=== PATIENT | male | born 1945 | race Hispanic/Latino ===

== ENCOUNTER 2017-01-23 13:21 | Inpatient (IN) | payer MEDICARE, OTHER ==
[2017-01-23 13:25] VITALS: BMI 38.3
[2017-01-23] MEDS ORDERED: Ceftaroline 600 MG in Sodium Chloride 0.9% 100 ML IVPB STA (14:04)
[2017-01-23 14:08] LABS: ADD MANUAL DIFF? NO
[2017-01-23 14:12] LABS: VENOUS BLOOD GAS BASE EXCESS -2.9 mmol/L (0.0-2.0); VENOUS BLOOD PH 7.31 (7.32-7.43)
--- NOTE | 2017-01-23 14:23 | ED PDOC ---
Arrival/HPI - General Historian: Patient - History of Present Illness Time/Duration: Prior to Arrival, 4-6 hours Symptom Onset: Gradual Quality: Pressure, Stabbing Severity Level: 7 <Fransisco Brady - Last Filed: 01/23/17 15:53> <Jerrod Contreras - Last Filed: 01/23/17 17:13> - General Chief Complaint: Abnormal Skin Integrity Time Seen by Provider: 01/23/17 13:23 - History of Present Illness Narrative History of Present Illness (Text): 01/23/17 14:05 This is a 71 year old male with a PMH notable for HTN and DM presenting to the ED by referral from Dr. Ramirez in the wound care center for right knee infection. The patient has a remote history of posterior longitudinal ligament avulsion fracture of his right tibia. The patient has been previously seen by Dr. Aguillon (orthopedics). The patient is presenting with a swollen, painful right knee. The pain started this morning. The pain has not restricted his ROM at all. He has minimal pain with weight bearing. The patient has a wound that may possibly violate the knee capsule. He previously had a wound-vac on, but it was removed on Monday01/18/17. The patient denies fever, chills, chest pain, shortness of breath, abdominal pain, changes in bowel/bladder, and extremity paresthesias. (Fransisco Brady) Past Medical History - Provider Review Nursing Documentation Reviewed: Yes - Travel History Have you recently traveled outside [place] w/in the past 3 mons?: No - Infectious Disease Hx of Infectious Diseases: None - Tetanus Immunization Tetanus Immunization: Unknown - Cardiac Hx Hypertension: Yes - Pulmonary Hx Chronic Obstructive Pulmonary Disease (COPD): Yes - Neurological Hx Neurological Disorder: No - HEENT Hx HEENT Disorder: No - Renal Hx Renal Disorder: No - Endocrine/Metabolic Hx Diabetes Mellitus Type 2: Yes - Hematological/Oncological Hx Blood Disorders: No - Integumentary Other/Comment: right knee multiple blisters, bruises, and swelling, right foot brown skin discolorations and redness with z+1 edema, hard thick toenails both feet, redness swelling lle, multiple skin discolortions both arms, small scratch right forehead - Musculoskeletal/Rheumatological Hx Musculoskeletal Disorders: Yes Hx Spinal Stenosis: Yes Other/Comment: previous L knee injury, uses brace - Gastrointestinal Hx Gastrointestinal Disorders: No - Genitourinary/Gynecological Hx Genitourinary Disorders: No - Psychiatric Hx Psychophysiologic Disorder: No Hx Substance Use: No - Anesthesia Hx Anesthesia: No Hx Anesthesia Reactions: No Hx Malignant Hyperthermia: No <Fransisco Brady - Last Filed: 01/23/17 15:53> <Jerrod Contreras - Last Filed: 01/23/17 17:13> - Patient History Narrative Patient History: This is a 71 year old male with a PMH notable for HTN and DM (Fransisco Brady) Family/Social History - Physician Review Nursing Documentation Reviewed: Yes Family/Social History: No Known Family HX Smoking Status: Heavy Smoker > 10 Cigarettes Daily (quit Monday (01/20/17 at start of Hyperbaric therapy)) Hx Alcohol Use: No Hx Substance Use: No <Fransisco Brady - Last Filed: 01/23/17 15:53> Allergies/Home Meds <Fransisco Brady - Last Filed: 01/23/17 15:53> <Jerrod Contreras - Last Filed: 01/23/17 17:13> Allergies/Adverse Reactions: Allergies ropinirole HCl [From Requip] Allergy (Severe, Verified 01/23/17 13:25) ANGIOEDEMA swollen tongue Home Medications: Home Meds Medication Instructions Recorded Confirmed Enalapril Maleate [Vasotec] 20 mg PO DAILY 08/20/16 01/23/17 Gemfibrozil 600 mg PO BID 08/20/16 01/23/17 GlipiZIDE SR [Glucotrol XL] 10 mg PO DAILY 08/20/16 01/23/17 Metoprolol Tartrate [Lopressor] 50 mg PO DAILY 08/20/16 01/23/17 Spironolactone [Aldactone] 25 mg PO DAILY 08/20/16 01/23/17 amLODIPine [Norvasc] 10 mg PO DAILY 08/20/16 01/23/17 hydrALAZINE [Apresoline] 25 mg PO BID 08/20/16 01/23/17 Terazosin [Hytrin] 10 mg PO DAILY 01/23/17 01/23/17 Review of Systems - Physician Review All systems were reviewed & negative as marked: Yes - Review of Systems Constitutional: absent: Fatigue, Fevers Eyes: absent: Vision Changes, Eye Pain ENT: absent: Hearing Changes, Tinnitus Respiratory: absent: SOB, Cough Cardiovascular: absent: Chest Pain, Palpitations Gastrointestinal: absent: Abdominal Pain, Nausea, Vomiting Genitourinary Male: absent: Dysuria, Frequency Musculoskeletal: Arthralgias, Joint Swelling, Myalgias. absent: Back Pain Skin: absent: Rash, Pruritis Neurological: absent: Headache, Dizziness Endocrine: absent: Diaphoresis Hemo/Lymphatic: absent: Adenopathy Psychiatric: absent: Anxiety <Fransisco Brady - Last Filed: 01/23/17 15:53> Physical Exam Vital Signs Reviewed: Yes Temperature: Afebrile Blood Pressure: Normal Pulse: Regular Respiratory Rate: Normal Appearance: Positive for: Well-Appearing, Non-Toxic, Comfortable Pain Distress: Moderate Mental Status: Positive for: Alert and Oriented X 3 - Systems Exam Head: Present: Atraumatic, Normocephalic Pupils: Present: PERRL Extroacular Muscles: Present: EOMI Conjunctiva: Present: Normal Mouth: Present: Moist Mucous Membranes. No: Drooling Neck: Present: Normal Range of Motion. No: Lymphadenopathy Respiratory/Chest: Present: Clear to Auscultation, Good Air Exchange. No: Respiratory Distress, Accessory Muscle Use Cardiovascular: Present: Regular Rate and Rhythm, Normal S1, S2. No: Murmurs Abdomen: Present: Normal Bowel Sounds. No: Tenderness, Distention, Peritoneal Signs Back: Present: Normal Inspection. No: CVA Tenderness, Pain with Leg Raise Upper Extremity: Present: Normal Inspection, Normal ROM, NORMAL PULSES, Neurovascularly Intact. No: Cyanosis, Edema Lower Extremity: Present: Edema (1+ B/L), NORMAL PULSES, Normal ROM, Tenderness (right medial knee), Swelling (right knee), Erythema (right knee), Temperature Abnormalties (right knee warmth ), Other (Right Knee Wound 1.5cm possible penetration of the joint capsult / 2+ joint effusion ). No: Normal Inspection, CALF TENDERNESS Neurological: Present: GCS=15, CN II-XII Intact Skin: Present: Warm, Dry. No: Rashes, Normal Color (erythema right knee) Psychiatric: Present: Alert, Oriented x 3. No: Normal Insight, Normal Concentration <Fransisco Brady - Last Filed: 01/23/17 15:53> Vital Signs Temp Pulse Resp BP Pulse Ox 01/23/17 16:39 66 16 125/95 H 100 01/23/17 13:27 97.5 F L 67 17 130/65 95 Medical Decision Making - Lab Interpretations I have reviewed the lab results: Yes Interpretation: Abnormal lab values <Romi Bradys - Last Filed: 01/23/17 15:53> <Jerrod Contreras - Last Filed: 01/23/17 17:13> ED Course and Treatment: 01/23/17 14:32 Impression: This is a 71 year old male with a PMH notable for HTN and DM presenting to the ED by referral from Dr. Ramirez in the wound care center for right knee infection. The patient appears clinically stable. The patients knee is grossly erythematous and edematous. Differential: Knee Joint Infection Soft Tissue Infection Abscess Non-healing wound Plan: CBC, CMP, PT, PTT, Mag, Phos, ESR, CRP Blood Cultures UA, Urine Culture MRI Right Knee w/ and w/o contrast Teflaro 600mg IV x 1 Prior Visits: 08/20/16- Right tibial plateau fracture/fall Progress Notes: Patient seen and examined at the bedside. The patient is in moderate distress 2 /2 to pain. The patient's knee is grossly swollen and edematous. The patient has a 1.5cm wound that appears deep and may possibly violate the knee joint that is covered with a bandage. The patient has intact ROM of the right knee. The patient is able to ambulate. The patient is pending MRI. 01/23/17 16:03 Dr. Aguillon was contacted regarding consultation for this patient. He advised no invasive procedures to be done in the ED, and to continue with MRI and IV antibiotics. Dr. Ramirez has taken wound cultures prior to the patient's admission to the ED. Dr. Trivedi's service was called regarding the patient. She has accepted the patient for admission. (Fransisco Brady) A 71 year old male sent in by Dr. Ramirez for a right knee infection. In agreement with resident note, which includes further HPI details. Patient was seen and evaluated with resident, came up with plan and treatment together. Will order MRI, labs and medication. Patient to be admitted under Dr. Mei. I discussed plan with her. (Jerrod Contreras) - Lab Interpretations Narrative Lab Interpretation (Text): 01/23/17 14:41 01/23/17 14:00 WBC 11.4 H RBC 3.81 Hgb 11.8 L Hct 35.7 L MCV 93.7 MCH 31.0 MCHC 33.1 RDW 14.3 Plt Count 356 MPV 10.8 Gran % 79.7 H Lymph % (Auto) 12.4 L [place] % (Auto) 7.2 H Eos % (Auto) 0.4 L Baso % (Auto) 0.3 Gran # 9.10 H Lymph # 1.4 [place]win # 0.8 H Eos # 0.1 Baso # 0.03 ESR Pending pO2 46 VBG pH 7.31 L VBG pCO2 47.0 VBG HCO3 23.7 VBG Total CO2 25.1 VBG O2 Sat (Calc) 83.7 H VBG Base Excess -2.9 L VBG Potassium 3.5 L Glucose 168 H Lactate 1.0 FiO2 21.0 Sodium 135.0 Potassium 3.9 Chloride 104.0 Carbon Dioxide 22 Anion Gap 18 BUN 19 Creatinine 1.3 Est GFR ( Amer) > 60 Est GFR (Non-Af Amer) 55 Random Glucose 164 H Calcium 9.0 Phosphorus 3.0 Magnesium 1.9 Total Bilirubin 0.6 AST 25 ALT 8 Alkaline Phosphatase 73 NT-Pro-B Natriuret Pep 860 H Total Protein 7.3 Albumin 3.9 Globulin 3.4 Albumin/Globulin Ratio 1.1 Venous Blood Potassium 3.5 L (Fransisco Brady) Lab Results: 01/23/17 14:00 01/23/17 14:00 Lab Results 01/23/17 14:00: WBC 11.4 H, RBC 3.81, Hgb 11.8 L, Hct 35.7 L, MCV 93.7, MCH 31.0 , MCHC 33.1, RDW 14.3, Plt Count 356, MPV 10.8, Gran % 79.7 H, Lymph % (Auto) 12.4 L, [place] % (Auto) 7.2 H, Eos % (Auto) 0.4 L, Baso % (Auto) 0.3, Gran # 9.10 H, Lymph # 1.4, [place] # 0.8 H, Eos # 0.1, Baso # 0.03, ESR 22 H, PT 11.5, INR 1.06, APTT 27.2, pO2 46, VBG pH 7.31 L, VBG pCO2 47.0, VBG HCO3 23.7, VBG Total CO2 25.1, VBG O2 Sat (Calc) 83.7 H, VBG Base Excess -2.9 L, VBG Potassium 3.5 L , Glucose 168 H, Lactate 1.0, FiO2 21.0, Sodium 135.0, Potassium 3.9, Chloride 104.0, Carbon Dioxide 22, Anion Gap 18, BUN 19, Creatinine 1.3, Est GFR ( Amer) > 60, Est GFR (Non-Af Amer) 55, Random Glucose 164 H, Calcium 9.0 , Phosphorus 3.0, Magnesium 1.9, Total Bilirubin 0.6, AST 25, ALT 8, Alkaline Phosphatase 73, NT-Pro-B Natriuret Pep 860 H, Total Protein 7.3, Albumin 3.9, Globulin 3.4, Albumin/Globulin Ratio 1.1, Venous Blood Potassium 3.5 L - RAD Interpretation Radiology Orders: 01/23/17 14:01 KNEE W/ & W/O CONTRAST RGHT [MRI] Urgent - Medication Orders Current Medication Orders: Discontinued Medications Ceftaroline Fosamil 600 mg/ (Sodium Chloride) 100 mls @ 100 mls/hr IVPB STAT STA PRN Reason: Protocol Stop: 01/23/17 15:03 Last Admin: 01/23/17 14:49 Dose: 100 MLS/HR eMAR Start Stop Document 01/23/17 14:49 EQ (Rec: 01/23/17 14:50 EQ [facility] [id number]) Intravenous Solution Start Date 01/23/17 Start Time 14:50 - PA / AUTO TECH / Resident Statement / has reviewed & agrees with the documentation as recorded. / has examined the patient and agrees with the treatment plan. <Jerrod Contreras - Last Filed: 01/23/17 17:13> Disposition/Present on Arrival - Present on Arrival Any Indicators Present on Arrival: No History of DVT/PE: No History of Uncontrolled Diabetes: No Urinary Catheter: No History of Decub. Ulcer: No History Surgical Site Infection Following: None - Disposition Have Diagnosis and Disposition been Completed?: Yes Disposition Time: 14:41 Patient Plan: Admission <Fransisco Brady - Last Filed: 01/23/17 15:53> - Present on Arrival Any Indicators Present on Arrival: No - Disposition Have Diagnosis and Disposition been Completed?: Yes Disposition Time: 17:12 Patient Plan: Admission, Discharge <Jerrod Contreras - Last Filed: 01/23/17 17:13> - Disposition Diagnosis: Infection of knee, Right knee pain Disposition: HOSPITALIZED Patient Problems: Current Active Problems Problem Status Diagnosed Infection of knee Acute Right knee pain Acute Condition: FAIR
[2017-01-23 14:24] LABS: BASO # 0.03 K/mm3 (0.0-2.0); BASO % 0.3 % (0.0-3.0); EOS # 0.1 (0.0-0.7); EOS % 0.4 % (1.5-5.0); GRAN % 79.7 % (50.0-68.0); HEMATOCRIT 35.7 % (42.0-52.0); LYMPH # 1.4 (1.2-3.4); LYMPH % 12.4 % (22.0-35.0); MEAN CELL VOLUME 93.7 fL (80.0-105.0); MEAN CORPUSCULAR HGB CONC 33.1 g/dl (31.0-37.0); MEAN PLATELET VOLUME 10.8 fl (7.0-11.0); MONO # 0.8 (0.1-0.6); MONO % 7.2 % (1.0-6.0); PLATELET COUNT 356 10^3/uL (120.0-450.0); RED CELL DISTRIBUTION WIDTH 14.3 % (11.5-14.5); WHITE BLOOD COUNT 11.4 10^3/ul (4.5-11.0)
[2017-01-23 14:26] LABS: ALB/GLOB RATIO 1.1 (1.1-1.8); ALKALINE PHOSPHATASE 73 U/L (38-133); ALT/SGPT 8 U/L (7-56); AST/SGOT 25 U/L (15-59); BILIRUBIN,TOTAL 0.6 mg/dL (0.2-1.3); BLOOD UREA NITROGEN 19 mg/dL (7-21); CARBON DIOXIDE 22 mmol/L (21-33); CHLORIDE 101 mmol/L (98-107); GFR AFRICAN-AMERICAN > 60; GLUCOSE,RANDOM 164 mg/dL (70-110); MAGNESIUM 1.9 mg/dL (1.7-2.2); POTASSIUM 3.9 mmol/L (3.6-5.0); SODIUM 137 mmol/L (132-148); TOTAL PROTEIN 7.3 g/dL (5.8-8.3)
[2017-01-23 14:39] LABS: INR 1.06 (0.93-1.08); PARTIAL THROMBOPLASTIN TIME 27.2 Seconds (23.7-30.8)
[2017-01-23 15:48] LABS: ERYTHROCYTE SEDIMENTATION RATE 22 mm/hr (0.00-15.0)
[2017-01-23 17:33] LABS: URINE BILIRUBIN NEGATIVE (NEGATIVE); URINE BLOOD NEGATIVE (NEGATIVE); URINE GLUCOSE (UA) NEGATIVE (NEGATIVE); URINE KETONE NEGATIVE (NEGATIVE); URINE LEUKOCYTE ESTERASE NEGATIVE Leu/uL (NEGATIVE); URINE PROTEIN TRACE mg/dL (<30 mg/dL); URINE UROBILINOGEN 0.2 E.U./dL (<1 E.U./dL)
[2017-01-23 17:34] LABS: URINE APPEARANCE CLEAR (CLEAR); URINE COLOR YELLOW (YELLOW)
[2017-01-23 17:37] LABS: URINE EPITHELIAL CELLS 0 - 2 /hpf (0-5); URINE RBC 0 - 2 /hpf (0-2); URINE WBC 0 - 2 /hpf (0-6)
[2017-01-23 17:38] LABS: URINE BACTERIA MANY (NEG)
[2017-01-23 17:40] LABS: URINE AMORPHOUS SEDIMENT FEW
[2017-01-23] MEDS ORDERED: Gadodiamide 287 MG/ML VIAL (20ML) IV ONE (18:57)
[2017-01-23] MEDS ORDERED: Albuterol-Ipratrop 3 mg / 0.5 (3 ml) UD IH PRN (19:30)
[2017-01-23] MEDS: Linezolid 600 mg in D5W 300 ml 300 ML IVPB SCH (22:57)
[2017-01-23] MEDS: Cefepime IV 2 gm in NS 100 ML IVPB SCH (22:57)
[2017-01-24] MEDS: Cefepime IV 2 gm in NS 100 ML IVPB SCH ×2 (09:25→21:53)
[2017-01-24] MEDS: GlipiZIDE 10 mg SR Tab PO SCH ×2 (09:26→12:39)
[2017-01-24] MEDS: Oxycodone/Acetaminophen 5/325 mg Tab PO PRN (13:39)
--- NOTE | 2017-01-24 14:18 | HP ---
CHIEF COMPLAINT: Pain in the right knee. HISTORY OF PRESENT ILLNESS: The patient is a 71-year-old, my private patient, with past medical history of hypertension, diabetes mellitus, came to the Emergency Room sent by Dr. Ramirez. The patient was getting wound care in the wound care center for wound on the right knee. The patient has remote history of procedure. wound of right tibia. The patient has been previously seen by Dr. Aguillon, orthopedics. The patient was getting wound treatment from Dr. Ramirez. Dr. Ramirez sent the patient to the Emergency Room because the knee was swollen and painful. He has minimal weightbearing. The patient has a wound that looks like communecating with theknee . The wound is deep and it looks like it has white debret infected. He previously had wound VAC on it but it was removed ,01/18/17. The patient denies any fever, chills, no chest pain, shortness of breath, abdominal pain. No diarrhea. No change in bowel habits. PAST MEDICAL HISTORY: Hypertension, COPD, diabetes mellitus. Right knee is swelling, edema. FAMILY HISTORY: Father and mother noncontributory. HABITS: Heavy smoking, quit on 01/20/17 as per patient as part of hyperbaric therapy. No alcohol. No substance abuse. ALLERGIES: THE PATIENT IS ALLERGIC WITH GIVING ANGIOEDEMA. HOME MEDICATIONS: Vasotec, gemfibrozil, Glucotrol, Lopressor, Aldactone, REVIEW OF SYSTEMS: The patient is examined at the bedside, complaining about pain in the right knee. Right knee swelling. No fever, no chills, no nausea, vomiting, or diarrhea. No hematuria or hematochezia. No headache, no dizziness. PHYSICAL EXAMINATION: VITAL SIGNS: Temperature 98.2, pulse 68, blood pressure 132/72, respiratory rate 19. HEENT: Head normocephalic, atraumatic. Eyes: PERRLA. Extraocular muscles intact. Conjunctivae pink. Eyelids unremarkable. Nose patent. NECK: Supple. No carotid bruit, JVD or thyromegaly. CHEST: Bilaterally symmetrical. HEART: S1, S2 positive. LUNGS: Clear to auscultation. ABDOMEN: Soft. Bowel sounds present. No organomegaly. EXTREMITIES: Left extremity, no edema and no cyanosis. Right extremity: Knee has dressing but is red, warm and wound is deep. It looks like a cornejo tone under the kneecap and it has a whitish discharge. NEUROLOGIC: The patient is awake, alert, moving all 4 extremities. No focal deficit. LABORATORY DATA: White blood cells 11.4, hemoglobin 11.8, hematocrit 35.7, and platelets 356. Sodium 137, potassium 3.9, BUN 19, creatinine 1.3, glucose 163. ASSESSMENT AND PLAN: The patient is a 71-year-old male with leukocytosis, anemia, hyperglycemia, proteinuria. Plan for MRI of the knee, results are pending. History of hypertension, diabetes mellitus, obesity, noncompliance with heavy smoking, history of falls, chronic obstructive pulmonary disease, obstructive sleep apnea syndrome, right knee cellulitis. Rule out osteomyelitis. We admitted the patient, gave antibiotics. consult with Dr. Ramirez. Infectious disease consult called also. Will call orthopedics. Gastrointestinal and deep venous thrombosis prophylaxis. Repeat labs. We will follow up. Sally Mei MD cc: [id number] TT: 01/24/2017 08:56:01 ron CANELA
--- NOTE | 2017-01-24 15:08 | MRI ---
PROCEDURE: MRI Right Knee with and without contrast HISTORY: Pain. COMPARISON: None available. TECHNIQUE: Multiecho multiplanar sequences were performed through the right knee. 15 cc of Omniscan FINDINGS: ANTERIOR CRUCIATE LIGAMENT:: Intact. POSTERIOR CRUCIATE LIGAMENT:: Intact. MEDIAL MENISCUS:: Intact. LATERAL MENISCUS:: Intact. MEDIAL COLLATERAL LIGAMENT:: Intact. LATERAL COLLATERAL LIGAMENT COMPLEX:: Intact. QUADRICEPS TENDON:: Intact. PATELLAR TENDON:: Intact. CARTILAGE:: There is thinning and irregularity of the patellar cartilage JOINT FLUID:: Intact. OSSEOUS STRUCTURES:: Intact. OTHER FINDINGS: There is a large loculated fluid collection anterior and medial to the patella. This measures 7 cm height by 2.6 cm AP x 4.3 cm wide. There is surrounding enhancement edema and inflammation. The findings are consistent with an abscess versus an infected bursa. IMPRESSION: There is a large loculated fluid collection anterior and medial to the patella. This measures 7 cm height by 2.6 cm AP x 4.3 cm wide. There is surrounding enhancement edema and inflammation. The findings are consistent with an abscess versus an infected bursa.
--- NOTE | 2017-01-24 16:03 | CP.PCM.CON ---
History of Present Illness - History of Present Illness History of Present Illness: 71 year old male with PMH of HTN, DM, COPD, obstructive sleep apnea, obesity with BMI 38, history of posterior cruciate ligament avulsion was admitted after being seen by Dr. Ramirez at the [facility] care center. He has a swollen right knee which started 1-2 days ago, with minimal change in the knee's range of motion. He denies trauma to the knee, denies insect bites. The patient has a pet cat but he denies scratches from the cat. He also denies any travel outside of [place] in the past 3 months, no travels through wooded areas or bodies of water. The patient denies fever or chills, no nausea or vomiting, no chest pain , no SOB, no cough or colds, no diarrhea, no dysuria or hematuria, no abdominal pain. Infectious Diseases consult is requested to further evaluate and manage. Review of Systems - Review of Systems All systems: reviewed and no additional remarkable complaints except (as per HPI ) Past Patient History - Infectious Disease Hx of Infectious Diseases: None - Tetanus Immunizations Tetanus Immunization: Unknown - Past Medical History & Family History Past Medical History?: Yes Past Family History: Reviewed and not pertinent - Past Social History Smoking Status: Former Smoker Alcohol: Occasional Drugs: Denies Home Situation {Lives}: With Family - CARDIAC Hx Cardiac Disorders: Yes Hx Hypertension: Yes - PULMONARY Hx Respiratory Disorders: Yes Hx Chronic Obstructive Pulmonary Disease (COPD): Yes Hx Sleep Apnea: Yes - NEUROLOGICAL Hx Neurological Disorder: No - HEENT Hx HEENT Problems: No - RENAL Hx Chronic Kidney Disease: No - ENDOCRINE/METABOLIC Hx Endocrine Disorders: Yes Hx Diabetes Mellitus Type 2: Yes - HEMATOLOGICAL/ONCOLOGICAL Hx Blood Disorders: No - INTEGUMENTARY Hx Dermatological Problems: Yes - MUSCULOSKELETAL/RHEUMATOLOGICAL Hx Musculoskeletal Disorders: Yes Hx Falls: Yes (TRIPPED OVER CARPET IN [employer] 08/20/17) - GASTROINTESTINAL Hx Gastrointestinal Disorders: No - GENITOURINARY/GYNECOLOGICAL Hx Genitourinary Disorders: No - PSYCHIATRIC Hx Psychophysiologic Disorder: No - SURGICAL HISTORY Hx Surgeries: Yes (cyst resection from spine 1965) - ANESTHESIA Hx Anesthesia: No Hx Anesthesia Reactions: No Hx Malignant Hyperthermia: No Meds Allergies/Adverse Reactions: Allergies Allergy/AdvReac Type Severity Reaction Status Date / Time ropinirole HCl [From Requip] Allergy Severe ANGIOEDEMA Verified 01/23/17 13:25 - Medications Medications: Current Medications Albuterol/Ipratropium (Duoneb 3 Mg/0.5 Mg (3 Ml) Ud) 3 ml IH [id number] PRN PRN Reason: Shortness of Breath Amlodipine Besylate (Norvasc) 10 mg PO 1800 MEHREEN Furosemide (Lasix) 40 mg PO DAILY MEHREEN Gemfibrozil (Lopid) 600 mg PO BID MEHREEN Glipizide (Glucotrol Xl) 10 mg PO DAILY MEHREEN Hydralazine HCl (Apresoline) 25 mg PO BID MEHREEN Lisinopril (Zestril) 20 mg PO DAILY MEHREEN Metoprolol Tartrate (Lopressor) 50 mg PO BRK MEHREEN Spironolactone (Aldactone) 25 mg PO DAILY MEHREEN Physical Exam - Constitutional Appears: Non-toxic, No Acute Distress - Head Exam Head Exam: NORMAL INSPECTION - ENT Exam ENT Exam: Mucous Membranes Moist - Neck Exam Neck exam: Negative for: Lymphadenopathy, Meningismus - Respiratory Exam Respiratory Exam: Decreased Breath Sounds - Cardiovascular Exam Cardiovascular Exam: +S1, +S2 - GI/Abdominal Exam GI & Abdominal Exam: Soft. absent: Tenderness - Extremities Exam Additional comments: swelling, redness and erythema over the medial portion of the knee without note of fluid wave in the knee joint Results - Vital Signs Recent Vital Signs: Last Vital Signs Temp 98.2 F 01/23/17 17:41 Pulse 68 01/23/17 17:41 Resp 19 01/23/17 17:41 BP 136/72 01/23/17 17:41 Pulse Ox 100 01/23/17 16:39 - Labs Result Diagrams: 01/23/17 14:00 01/23/17 14:00 Labs: Laboratory Results - last 24 hr 01/23/17 01/23/17 01/23/17 17:02 17:20 21:26 POC Glucose (mg/dL) 163 H 110 Urine Color Yellow Urine Appearance Clear Urine pH 6.0 Ur Specific [place] 1.015 Urine Protein Trace H Urine Glucose (UA) Negative Urine Ketones Negative Urine Blood Negative Urine Nitrate Negative Urine Bilirubin Negative Urine Urobilinogen 0.2 Ur Leukocyte Esterase Negative Urine RBC 0 - 2 Urine WBC 0 - 2 Ur Epithelial Cells 0 - 2 Amorphous Sediment Few Urine Bacteria Many Hyaline Casts 0 - 2 Fine Granular Casts Trauma Registrar Assessment & Plan - Assessment and Plan (Free Text) Plan: Assessment Sepsis secondary to right knee prepatellar abscess or infected bursa HTN DM COPD obstructive sleep apnea obesity with BMI 38 history of posterior cruciate ligament avulsion Plan Started patient on Zyvox and Cefepime pending blood cx; will await Orthopedic evaluation and plan for drainage of the fluid collection Will follow clinically
--- NOTE | 2017-01-24 19:29 | CON ---
DATE: 01/24/2017 REASON FOR CONSULTATION: Right knee pain, cellulitis. This is a 71-year-old gentleman who was being treated as an outpatient for a right knee wound on the lateral aspect of his proximal tibia. The patient was getting wound care, as well as antibiotics, an d was seen and developed increased pain and swelling about the medial aspect of the right knee. The patient was subsequently admitted, and now presents for further orthopedic evaluation and treatment. The patient has been started on IV antibiotics on admission. On exam, this is a gentleman in no apparent distress. He is awake, alert, and oriented x 3. He is c urrently afebrile. Evaluation of the right knee shows he has erythema and swelling along the anteromedial aspect of the right knee. He is tender to palpation in this area. He also has a medial wound approximately 2.5 x 3 cm that appears to have some fibrinous material in the base of the ulcer. No gross purulence is a ppreciated. He does not have any significant tenderness around this area. He is tolerating some act francisca range of motion of the knee from about -5 to 90 degrees of flexion. He is grossly stable with va seema valgus stress. His thigh and calf are soft and nontender. NEUROLOGICALLY: He is intact. I have reviewed the MRI images. MRI appears to be consistent with a fluid collection along the anter omedial aspect of the knee joint. There does not appear to be a sinus tract going into the knee join t. There is a small knee effusion. No obvious bone marrow changes are appreciated in the proximal t ibia or distal femur to suggest an osteomyelitis. IMPRESSION: Right knee abscess and cellulitis. PLAN: At this point, recommendations would be for irrigation and debridement of the area around the anteromedial aspect of his knee. The risks and benefits were discussed. We are going to plan on asif eduling him for surgery tomorrow. Dhaval Aguillon MD cc: [id number] TT: 01/24/2017 19:28:49 Confirmation # [id number] Dictation # [id number] shyla
--- NOTE | 2017-01-24 20:48 | PN ---
DATE: 01/24/2017 SUBJECTIVE: The patient seen and examined on the bedside, looks comfortable. No nausea, vomiting, or diarrhea. No hematuria or hematochezia. Still complaining about pain in the leg. No fever, no chills, but right leg is warm and red. The patient went for wound chamber treatment. No hematuria or hematochezia. PHYSICAL EXAMINATION: VITAL SIGNS: Temperature 98.5, pulse 66, blood pressure 133/59, respiratory rate 18. HEENT: Head normocephalic, atraumatic. Eyes: PERRLA. Extraocular muscles intact. Conjunctivae pink. Eyelids unremarkable. Nose patent. NECK: Supple. No carotid bruit, JVD or thyromegaly. CHEST: Bilaterally symmetrical. HEART: S1, S2 positive. LUNGS: Clear to auscultation. ABDOMEN: Soft. Bowel sounds positive. No organomegaly. EXTREMITIES: Upper extremities, no edema, no cyanosis. Lower extremities, right knee has dressing, but SURROUNDING area is red and warm and patient has pain in the knee. NEUROLOGIC: The patient is awake, alert, moving all 4 extremities. No focal deficits. Oriented x 3. Cranial nerves II-XII were grossly intact. MEDICATIONS: Aldactone, hydralazine, dextrose, DuoNeb, Glucotrol, Lasix, Lopressor, Maxipime, Norvasc, Percocet, Zestril, Zyvox. LABORATORY DATA: White blood cells 11.4, hemoglobin 11.8, hematocrit 35.7, platelets 235. Glucose 156, 122, 143, 119. ASSESSMENT AND PLAN: The patient is a 71-year-old male with sepsis secondary to right knee prepatellar abscess or infected bursa, history of trauma, hypertension, diabetes mellitus, chronic obstructive pulmonary disease, obstructive sleep apnea syndrome, obesity, history of posterior cruciate ligament avulsion. The patient is started on Zyvox and cefepime pending blood culture. Waiting for orthopedic evaluation and plan of draining of the fluid collected. Appreciated Dr. Gm Uribe's consult, infectious disease. Orthopedic recommended wound care, irrigation and debridement of the area surrounding the anteromedial aspect of the knee. Risks and benefits discussed. The patient will go for surgery tomorrow. The patient has history of obstructive sleep apnea syndrome. Was getting wound care and chamber treatment by Dr. Ramirez in the wound care center. Used to have a wound VAC. The patient has minimal change in the knee range of motion. Denies recent trauma, history of trauma. Gastrointestinal and deep vein thrombosis prophylaxis. Continue Aldactone and continue glipizide for diabetes, Zyvox for infection, Zestril, amlodipine, Lopressor for hypertriglyceridemia. Appreciated surgical and infectious disease input. We will follow up. Sally Mei MD cc: [id number] TT: 01/24/2017 20:48:14 Confirmation # [id number] Dictation # [id number] gwen CANELA
[2017-01-24] MEDS: Linezolid 600 mg in D5W 300 ml 300 ML IVPB SCH (21:54)
--- NOTE | 2017-01-25 02:56 | CON ---
DATE: 01/24/2017 REFERRING PHYSICIAN: Dr. Mei. REASON FOR CONSULT: Chronic obstructive lung disease, obstructive sleep apnea syndrome, admitted wit h cellulitis of the right knee. HISTORY OF PRESENT ILLNESS: This is a 71-year-old gentleman with chronic obstructive lung disease, o bstructive sleep apnea syndrome, diabetes, hypertension, had a nonhealing foot ulcer being followed b y podiatry, Dr. Ramirez at a wound care center. According to the patient, within 24 hours he found t hat right knee is red, erythematous and tender, so he was sent to the Emergency Room. Presently, sit ting in a bed, having dinner. Denying any cough or sputum production, no hemoptysis, no hematemesis, no hematuria. Right knee is swollen and tender. PAST MEDICAL HISTORY: Chronic obstructive lung disease, obstructive sleep apnea syndrome, diabetes, hypertension, obesity, nonhealing foot ulcers. ALLERGIES: ROPINIROL. MEDICATIONS: He is on Aldactone 25 mg daily, hydralazine 25 mg twice a day, albuterol-Atrovent nebul izer every 6 hours p.r.n., Glucotrol-XL 10 mg daily, Lasix 40 mg daily, Lopid 600 mg twice a day, Lop ressor 50 mg daily, cefepime 2 g IV every 12 hours, Norvasc 10 mg daily. He is on oxycodone with Tyl enol 5/325 one tab every 6 hours p.r.n., Zestril is at 20 mg daily, Zyvox 600 mg daily. SOCIAL HISTORY: Active smoker. Denies any alcohol use. FAMILY HISTORY: No significant cardiopulmonary disease reported. REVIEW OF SYSTEMS: No headache, no rhinitis. Has cough, mildly short of breath with exertion. No c hest pain, no nausea, no vomiting, no abdominal pain, no dysuria, right knee swollen and tender and r ed. PHYSICAL EXAMINATION: GENERAL: Sitting up in no acute distress. VITAL SIGNS: Temp is 98, heart rate 66, respiratory rate is 20, blood pressure 130/59 and pulse ox 9 9% on room air. HEENT: Moist mucous membranes. Crowded airway. Mallampati score is 4. NECK: Supple. No JVD. LUNGS: Have a prolonged expiratory phase with few rhonchi. HEART: S1, S2. ABDOMEN: Soft, nontender, nondistended. EXTREMITIES: Decreased edema. Right knee has infected skin, has some old scars, erythema, tender to touch. Decreased range of motion. NEUROLOGIC: Awake, alert, follows simple commands. LABORATORY DATA: Shows hemoglobin 11.8, hematocrit 35.7, WBC 11.4, platelet is 356. INR 1.06 and PT T is 27. VBG 7.31, pCO2 of 47, O2 of 46% on room air. Sodium 137, potassium 3.9, chloride 104, bica rbonate 22, BUN 19, creatinine 1.3, glucose 119, calcium is 9.0, phosphorus 3.0, magnesium 1.9, total bilirubin 0.6, AST 25, ALT 8, alkaline phosphatase is 73. C-reactive protein more than 15. Pr oBNP is 60, albumin is 3.9. Microbiology: Blood cultures have been negative. IMPRESSION AND PLAN: Right knee abscess and cellulitis, chronic obstructive lung disease, obstructive sleep apnea syndrome , hypertension, diabetes, morbid obesity, and degenerative joint disease. We will place him on CPAP, 12 cm with 35% oxygen while sleeping. Continue inhaled bronchodilator, ga stric prophylaxis, DVT prophylaxis. I urged patient to stop smoking. Fall precautions. Will have a debridement of the right knee tomorrow. Thank you and we will follow with you. Edilberto Caraballo MD cc: [id number] TT: 01/25/2017 02:56:17 Confirmation # [id number] Dictation # [id number] mn
[2017-01-25] MEDS ORDERED: Dextrose 5%/0.45% NS 1,000 ML IV SCH (06:00)
[2017-01-25 07:46] LABS: HEMATOCRIT 32.9 % (42.0-52.0); MEAN CELL VOLUME 93.2 fL (80.0-105.0); MEAN CORPUSCULAR HEMOGLOBIN 30.9 pg (25.0-35.0); MEAN CORPUSCULAR HGB CONC 33.1 g/dl (31.0-37.0); MEAN PLATELET VOLUME 10.6 fl (7.0-11.0); RED CELL DISTRIBUTION WIDTH 14.1 % (11.5-14.5); WHITE BLOOD COUNT 13.6 10^3/ul (4.5-11.0)
[2017-01-25 08:13] LABS: BLOOD UREA NITROGEN 17 mg/dL (7-21); CALCIUM 8.8 mg/dL (8.4-10.5); CARBON DIOXIDE 24 mmol/L (21-33); CHLORIDE 101 mmol/L (95-110); CHOLESTEROL 94 mg/dL (130-200); GFR AFRICAN-AMERICAN > 60; GLUCOSE,RANDOM 84 mg/dL (70-110); POTASSIUM 3.6 mmol/L (3.6-5.0); SODIUM 137 mmol/L (132-148)
[2017-01-25] MEDS ORDERED: Propofol 10 mg/ml Inj (20 ML) ONE (08:45)
[2017-01-25] MEDS ORDERED: Midazolam 2 MG/2 ML VIAL ONE (08:45)
--- NOTE | 2017-01-25 09:05 | CARD ---
APPROVED REPORT EKG Measurement Heart [id number] <Conclusion> Normal sinus rhythm Right bundle branch block Abnormal ECG
--- NOTE | 2017-01-25 09:32 | RAD ---
HISTORY: OR in am COMPARISON: 01/17/2017 TECHNIQUE: Chest PA and lateral FINDINGS: LUNGS: No active pulmonary disease. Lung volumes are not significantly changed PLEURA: No significant pleural effusion identified. No pneumothorax apparent. CARDIOVASCULAR: Normal. OSSEOUS STRUCTURES: Thoracic spondylosis VISUALIZED UPPER ABDOMEN: Normal. OTHER FINDINGS: None. IMPRESSION: No active disease. No interval pathology noted
[2017-01-25] MEDS: GlipiZIDE 10 mg SR Tab PO SCH ×2 (09:37→10:59)
[2017-01-25] MEDS: Cefepime IV 2 gm in NS 100 ML IVPB SCH ×3 (09:37→22:00)
[2017-01-25] MEDS: Linezolid 600 mg in D5W 300 ml 300 ML IVPB SCH ×3 (09:38→22:30)
[2017-01-25] MEDS ORDERED: HYDROmorphone 0.5 mg/0.5 ml ISec IVP PRN (09:48)
[2017-01-25] MEDS ORDERED: Lactated Ringer's 1,000 ML IV SCH (10:00)
--- NOTE | 2017-01-25 10:21 | OP ---
PROCEDURE DATE: 01/25/2017 PREOPERATIVE DIAGNOSIS: Right knee abscess. POSTOPERATIVE DIAGNOSIS: Right knee abscess. PROCEDURE: Irrigation and debridement of right knee abscess and application of wound VAC. SURGEON: Dhaval Aguillon MD ANESTHESIA: General. COMPLICATIONS: None. ESTIMATED BLOOD LOSS: 20 mL. INDICATIONS FOR PROCEDURE: This is a 71-year-old gentleman who presented with complaints of increasi ng right knee pain and swelling. The patient was previously being treated for an ulcer on the anteri or aspect of the right knee. He subsequently developed increased swelling and some drainage from the ulcer. MRI examination was consistent with a superficial fluid collection and recommendations were for irrigation and debridement of the abscess. The risks, benefits, and alternatives of procedure we re discussed with the patient and informed consent was obtained. OPERATIVE PROCEDURE: After surgical site was found and verified in preoperative holding area, the pa tient was taken to the operating room and placed supine on the operating table. After administration of general anesthesia, a tourniquet was placed about the right thigh. Care was taken to make sure a ll bony prominences and nerves were well padded and protected, and the right lower extremity was prep ped and draped in usual sterile fashion. Using a curved Isabel clamp, the clamp was inserted into the ulcer and this easily tracked to the area of the fluid collection. A significant amount of very fou l-smelling pus was evacuated. Cultures x 2 were taken deep within the pocket of the abscess. Once a ll the pus had been drained, a curette was inserted and the abscess cavity was scraped. Satisfied th at there were no loculations, a pulse lavage probe was inserted into the abscess and the wound was ir rigated with 6 liters of antibiotic saline solution. Satisfied, a new down sheet was placed and glov es were changed. A Wound VAC sponge was inserted into the abscess pocket and left up until the openi ng. At this point, the wound VAC was connected to the wound VAC machine and excellent seal was estab lished. At this point, a sterile dressing was applied and a knee immobilizer was placed. The patien t was awakened from the procedure and taken to recovery room in stable condition. Dhaval Aguillon MD cc: [id number] TT: 01/25/2017 10:20:57 mn
--- NOTE | 2017-01-25 13:58 | PN ---
DATE: 01/25/2017 REFERRING PHYSICIAN: Dr. Mei. SUBJECTIVE: He is lying in the bed, head at 45 degrees, having lunch. Had debridement of the right knee wound with a wound VAC present, feels well. Night was unremarkable. Could not use BiPAP. No n ausea, no vomiting, no diarrhea. Does have some right knee pain. OBJECTIVE: GENERAL: No acute distress. VITAL SIGNS: Temperature is 98, heart rate is 70, respiratory rate is 18, blood pressure 132/70, pul se ox 97% on room air. HEENT: Moist mucous membranes. Crowded airway. Mallampati score is 4. NECK: Supple. No JVD. LUNGS: Has a fair airflow with few rhonchi. HEART: S1, S2. ABDOMEN: Soft, nontender. No organomegaly. EXTREMITIES: Right knee has a wound VAC. Extremity trace edema. NEUROLOGIC: Awake, alert, follows simple commands. MEDICATIONS: He is on Aldactone 25 mg daily, hydralazine 25 mg twice a day, DuoNeb q. 6 hours p.r.n. , glipizide XL 10 mg daily, Lasix 40 mg daily, Lopid 600 mg twice a day, metoprolol tartrate 50 mg da rush in the morning, cefepime is 2 g IV q. 12 hours, Norvasc 10 mg daily, Percocet 5/325 one tab q. 6 hours p.r.n., Zestril 20 mg daily, Zyvox 600 mg twice a day. LABORATORY DATA: Shows hemoglobin 10.9, hematocrit 32.9, WBC 13.6, platelet is 343. Sodium 137, pot assium 3.6, chloride 101, bicarbonate 24, BUN 17, creatinine 1.3, glucose 71. Hemoglobin A1c 6.0, ca lcium 8.8, cholesterol is 94. MICROBIOLOGY: Blood culture, urine culture, there is no growth. IMPRESSION AND PLAN: Right knee abscess and cellulitis, status post debridement and drainage of woun d and placement of wound VAC, chronic obstructive lung disease, obstructive sleep apnea syndrome, hyp ertension, diabetes, morbid obesity, and degenerative joint disease. Pulmonary point of view, doing okay. Encourage CPAP use, keep head elevated at 45 degrees. Inhaled bronchodilator. Gastric prophyl axis. Deep venous thrombosis prophylaxis. Fall precautions. Thank you and will follow with you. Edilberto Caraballo MD cc: [id number] TT: 01/25/2017 13:58:21 Confirmation # [id number] Dictation # [id number] rn
[2017-01-25] MEDS: Oxycodone/Acetaminophen 5/325 mg Tab PO PRN (15:06)
--- NOTE | 2017-01-26 00:12 | PN ---
DATE: 01/25/2017 SUBJECTIVE: The patient was seen and examined on the bedside, lying down, having a wound VAC, went to surgery by Dr. Aguillon, had debridement of the right knee. He is well. No change in the status. not use BiPAP. No fever. No chills. No nausea, vomiting, or diarrhea. Still having pain in the right knee. PHYSICAL EXAMINATION: VITAL SIGNS: Temperature 98, heart rate 70, respiratory rate 18, blood pressure 132/70, pulse oximetry 97% on room air. HEAD: Normocephalic, atraumatic. EYES: PERRLA. Extraocular muscles intact. Conjunctivae pink. Eyelids unremarkable. Nose patent. Mucous membranes moist. NECK: Supple. No carotid bruit. No JVD or thyromegaly. CHEST: Bilaterally symmetrical. HEART: S1, S2 positive. LUNGS: Has a fair airflow with few rhonchi. ABDOMEN: Soft, nontender. No organomegaly. EXTREMITIES: Right knee has a wound VAC and a dressing. Trace edema. No cyanosis. NEUROLOGIC: The patient is awake, alert, follows simple commands. MEDICATIONS: Aldactone, hydralazine, DuoNeb, glipizide, Lasix, metoprolol, cefepime, Norvasc, Percocet, Zestril, Zyvox. LABORATORY DATA: Hemoglobin 10.9, hematocrit 32.9, white blood cell 13.6, platelets 343. Sodium 137, potassium 3.6, BUN 17, creatinine 1.3, hemoglobin A1c 6.0. Cholesterol 94. ASSESSMENT AND PLAN: The patient is a 71-year-old male with multiple medical problems, right knee abscess and cellulitis, status post a debridement and drainage and putting of wound VAC, chronic lung disease with sleep apnea syndrome, diabetes mellitus, hypertension, hypercholesterolemia, obesity, degenerative joint disease. The patient does not use a CPAP. Encourage a CPAP. Inhaled bronchodilators. Gastric and deep venous thrombosis prophylaxis. Fall precautions. ID. Surgery is on the case. We will continue Aldactone, hydralazine, Lasix, metoprolol, Zestril for blood pressure, glipizide for diabetes, getting cefepime antibiotics and Zyvox. Continue antibiotics as per ID. Appreciative of pulmonary input. Dr. Aguillon's operative notes. Gastrointestinal and deep venous thrombosis prophylaxis. Repeat labs. We will follow up. Sally Mei MD cc: [id number] TT: 01/25/2017 23:44:16 Confirmation # [id number] Dictation # [id number] tn 01/25/2017 23:10:52 ROLA
[2017-01-26 07:28] LABS: HEMATOCRIT 34.5 % (42.0-52.0); MEAN CELL VOLUME 93.2 fL (80.0-105.0); MEAN CORPUSCULAR HEMOGLOBIN 31.1 pg (25.0-35.0); MEAN CORPUSCULAR HGB CONC 33.3 g/dl (31.0-37.0); MEAN PLATELET VOLUME 10.1 fl (7.0-11.0); RED CELL DISTRIBUTION WIDTH 13.9 % (11.5-14.5); WHITE BLOOD COUNT 10.7 10^3/ul (4.5-11.0)
--- NOTE | 2017-01-26 09:41 | PN ---
DATE: 01/26/2017 This is a 71-year-old male seen status post and I and D by Dr. Aguillon, of an abscess in his right k nee yesterday. The patient states that he is feeling better. He has a wound VAC in place, and he de nies any fever and chills. He has a splint on his knee. The patient did have the MRI, and his MRI o f the knee shows the fluid abscess, however, it was negative for any osteomyelitis. The patient had started hyperbaric oxygen last week. I did offer for him to come back into the oxygen chambers while he was here, a patient at the hospital, which would help with bacteria control and killing of any ba cteria in the sinus tract. The patient, however, stated that he started getting anxious during his t reatments and he was not sure if he really wanted to continue. I did offer to give him Ativan, but a gain, he was quite reluctant to go into the hyperbaric at this time. Dressing changes are not going to be done. They are ordered by Dr. Aguillon, and he will be seen and followed as needed. Renata Ramirez DPM cc: [id number] TT: 01/26/2017 09:40:20 Confirmation # [id number] Dictation # [id number] shyla
[2017-01-26] MEDS: GlipiZIDE 10 mg SR Tab PO SCH (10:14)
[2017-01-26] MEDS: Cefepime IV 2 gm in NS 100 ML IVPB SCH ×2 (10:15→22:20)
[2017-01-26] MEDS: Enoxaparin 40 mg Syringe SC SCH (10:15)
[2017-01-26] MEDS: Linezolid 600 mg in D5W 300 ml 300 ML IVPB SCH ×2 (11:10→22:21)
--- NOTE | 2017-01-26 11:54 | CP.PCM.PN ---
Subjective - Date & Time of Evaluation Date of Evaluation: 01/26/17 Time of Evaluation: 11:53 - Subjective Subjective: Pt doing ok. Afebrile RLE: dressing intact VAC with good seal grossly neuro intact distally Gram stain gram neg rods Cont wound VAC follow cultures antibiotics as per ID Objective - Vital Signs/Intake and Output Vital Signs (last 24 hours): Temp Pulse Resp BP Pulse Ox 97.8 F 65 19 142/74 96 01/26/17 08:44 01/26/17 08:44 01/26/17 08:44 01/26/17 10:15 01/26/17 08:44 Intake and Output: 01/26/17 01/26/17 06:59 18:59 Intake Total 840 Output Total 650 Balance 190 - Medications Medications: Current Medications Albuterol/Ipratropium (Duoneb 3 Mg/0.5 Mg (3 Ml) Ud) 3 ml IH [id number] PRN PRN Reason: Shortness of Breath Amlodipine Besylate (Norvasc) 10 mg PO 1800 [facility] Last Admin: 01/25/17 17:35 Dose: 10 mg Enoxaparin Sodium (Lovenox) 40 mg SC DAILY [facility]RE[facility] PRN Reason: Protocol Last Admin: 01/26/17 10:15 Dose: 40 mg Furosemide (Lasix) 40 mg PO DAILY [facility] Last Admin: 01/26/17 10:15 Dose: 40 mg Gemfibrozil (Lopid) 600 mg PO BID [facility] Last Admin: 01/26/17 10:15 Dose: 600 mg Glipizide (Glucotrol Xl) 10 mg PO DAILY [facility] Last Admin: 01/26/17 10:14 Dose: Not Given Hydralazine HCl (Apresoline) 25 mg PO BID [facility] Last Admin: 01/26/17 10:14 Dose: 25 mg Cefepime HCl (Maxipime 2gm) 100 mls @ 100 mls/hr IVPB Q12 MEHREEN PRN Reason: Protocol Stop: 01/28/17 22:46 Last Admin: 01/26/17 10:15 Dose: 100 mls/hr Linezolid (Zyvox 600mg/300ml D5w) 300 mls @ 200 mls/hr IVPB Q12 MEHREEN PRN Reason: Protocol Stop: 01/30/17 22:46 Last Admin: 01/26/17 11:10 Dose: 200 mls/hr Lisinopril (Zestril) 20 mg PO DAILY [facility] Last Admin: 01/26/17 10:16 Dose: 20 mg Metoprolol Tartrate (Lopressor) 50 mg PO BRK [facility] Last Admin: 01/26/17 10:15 Dose: 50 mg Oxycodone/Acetaminophen (Percocet 5/325 Mg Tab) 1 tab PO Q6H PRN PRN Reason: Pain, moderate (4-7) Stop: 01/27/17 13:06 Last Admin: 01/25/17 15:06 Dose: 1 tab Spironolactone (Aldactone) 25 mg PO DAILY [facility] Last Admin: 01/26/17 10:14 Dose: 25 mg - Labs Labs: 01/26/17 07:00 01/25/17 07:00 PT 11.5 Seconds (9.9-11.8) 01/23/17 14:00 INR 1.06 (0.93-1.08) 01/23/17 14:00 APTT 27.2 Seconds (23.7-30.8) 01/23/17 14:00
--- NOTE | 2017-01-26 16:47 | CP.PCM.PN ---
Subjective - Date & Time of Evaluation Date of Evaluation: 01/26/17 Time of Evaluation: 09:45 - Subjective Subjective: Comfortable in bed, not in distress, afebrile, less pain in the knee. Objective - Vital Signs/Intake and Output Vital Signs (last 24 hours): Temp Pulse Resp BP Pulse Ox 97.8 F 65 19 142/74 96 01/26/17 08:44 01/26/17 08:44 01/26/17 08:44 01/26/17 08:44 01/26/17 08:44 Intake and Output: 01/26/17 01/26/17 06:59 18:59 Intake Total 840 Output Total 650 Balance 190 - Medications Medications: Current Medications Albuterol/Ipratropium (Duoneb 3 Mg/0.5 Mg (3 Ml) Ud) 3 ml IH [id number] PRN PRN Reason: Shortness of Breath Amlodipine Besylate (Norvasc) 10 mg PO 1800 [facility] Last Admin: 01/25/17 17:35 Dose: 10 mg Enoxaparin Sodium (Lovenox) 40 mg SC DAILY MEHREEN PRN Reason: Protocol Furosemide (Lasix) 40 mg PO DAILY [facility] Last Admin: 01/25/17 10:58 Dose: 40 mg Gemfibrozil (Lopid) 600 mg PO BID [facility] Last Admin: 01/25/17 17:35 Dose: 600 mg Glipizide (Glucotrol Xl) 10 mg PO DAILY [facility] Last Admin: 01/25/17 10:59 Dose: 10 mg Hydralazine HCl (Apresoline) 25 mg PO BID [facility] Last Admin: 01/25/17 17:35 Dose: 25 mg Cefepime HCl (Maxipime 2gm) 100 mls @ 100 mls/hr IVPB Q12 MEHREEN PRN Reason: Protocol Stop: 01/28/17 22:46 Last Admin: 01/25/17 22:00 Dose: 100 mls/hr Linezolid (Zyvox 600mg/300ml D5w) 300 mls @ 200 mls/hr IVPB Q12 MEHREEN PRN Reason: Protocol Stop: 01/30/17 22:46 Last Admin: 01/25/17 22:30 Dose: 200 mls/hr Lisinopril (Zestril) 20 mg PO DAILY [facility] Last Admin: 01/25/17 10:58 Dose: 20 mg Metoprolol Tartrate (Lopressor) 50 mg PO BRK [facility] Last Admin: 01/25/17 07:48 Dose: 50 mg Oxycodone/Acetaminophen (Percocet 5/325 Mg Tab) 1 tab PO Q6H PRN PRN Reason: Pain, moderate (4-7) Stop: 01/27/17 13:06 Last Admin: 01/25/17 15:06 Dose: 1 tab Spironolactone (Aldactone) 25 mg PO DAILY [facility] Last Admin: 01/25/17 10:58 Dose: 25 mg - Labs Labs: 01/26/17 07:00 01/25/17 07:00 PT 11.5 Seconds (9.9-11.8) 01/23/17 14:00 INR 1.06 (0.93-1.08) 01/23/17 14:00 APTT 27.2 Seconds (23.7-30.8) 01/23/17 14:00 - Constitutional Appears: Non-toxic, No Acute Distress - Head Exam Head Exam: NORMAL INSPECTION - ENT Exam ENT Exam: Mucous Membranes Moist - Neck Exam Neck Exam: absent: Lymphadenopathy, Meningismus - Respiratory Exam Respiratory Exam: Decreased Breath Sounds - Cardiovascular Exam Cardiovascular Exam: +S1, +S2 - GI/Abdominal Exam GI & Abdominal Exam: Soft. absent: Tenderness - Extremities Exam Additional comments: right leg with immobilizer and drain in place Assessment and Plan - Assessment and Plan (Free Text) Plan: Assessment Sepsis secondary to right knee prepatellar abscess S/P irrigation ,debridement and placement of wound vacuum POD #1 HTN DM COPD obstructive sleep apnea obesity with BMI 38 history of posterior cruciate ligament avulsion Plan Started patient on Zyvox and Cefepime pending fluid collection cx Will continue to follow clinically
--- NOTE | 2017-01-26 22:11 | PN ---
DATE: 01/26/2017 REFERRING PHYSICIAN: Dr. Mei. SUBJECTIVELY: The patient is lying in the bed, head at 45 degrees. Day was unremarkable. Right delma doherty still has a wound VAC, also has a soft cast. Did not use his BiPAP. No nausea, no vomiting, and n o diarrhea. No dysuria. Has a trace right leg swelling. No swelling on the left leg. OBJECTIVELY: No acute distress. Temp is 98, heart rate is 60, respiratory rate is 20, blood pressure 143/75, pulse ox 96% on room air . HENT: Moist mucous membranes. Crowded airway. Mallampati score is 4. NECK: Supple. No JVD. LUNGS: Has a fair airflow with few rhonchi. HEART: S1 and S2. ABDOMEN: Soft, nontender, not distended. EXTREMITIES: There is no edema of the left leg. Right leg has a soft cast and wound VAC on the knee abscess. NEUROLOGICALLY: Awake, alert. Follows simple command. MEDICATIONS: He is on Aldactone 25 mg daily, hydralazine 25 mg twice a day, DuoNeb q. 6 hours, glipi zide 10 mg daily, Lasix 40 mg daily, Lopid 600 mg twice a day, metoprolol tartrate 50 mg daily, Loven ox 40 mg daily, cefepime 2 g IV q. 12 hours, Norvasc 10 mg daily, Percocet 5/325 one tab q. 6 hours p .r.n., Zestril 20 mg daily, Zyvox 600 mg twice a day. LABORATORY DATA: Shows hemoglobin 11.5, hematocrit 34.5, WBC 10.7, platelet is 351. Blood sugar thi s morning 63. IMPRESSION AND PLAN: Right knee abscess and cellulitis requiring debridement. Right now he has a wound VAC with a soft ca st. Chronic obstructive lung disease, obstructive sleep apnea syndrome, hypertension, diabetes, morb id obesity, degenerative joint disease. Will continue bronchodilator, keep head elevated at 45 degree, antibiotics. Encourage BiPAP use. Ga stric prophylaxis. Careful with sedation. DVT prophylaxis. Followup labs in the morning. Thank you, and will follow with you. Edilberto Caraballo MD cc: [id number] TT: 01/26/2017 22:11:10 Confirmation # [id number] Dictation # [id number] jn
[2017-01-26] MEDS: Oxycodone/Acetaminophen 5/325 mg Tab PO PRN (22:22)
--- NOTE | 2017-01-26 23:51 | PN ---
DATE: 01/26/2017 The patient is a 71-year-old male. SUBJECTIVE: The patient is seen and examined on the bedside, lying down comfortably on the bed, not look like in distress. In the morning went for procedure by Dr. Aguillon. Did some physical therapy while sitting on the chair also. No nausea or vomiting. PHYSICAL EXAMINATION: VITAL SIGNS: Temperature 97.6, pulse 60, blood pressure 142/75, respiratory rate 18. HEENT: Head: Normocephalic, atraumatic. Eyes: PERRLA. Extraocular muscles intact. Conjunctivae pink. Eyelids unremarkable. Nose patent. Mucous membranes moist. NECK: Supple. No carotid bruit, JVD, or thyromegaly. CHEST: Bilaterally symmetrical. HEART: S1, S2 positive. LUNGS: Clear to auscultation. ABDOMEN: Soft. Bowel sounds present. No organomegaly. EXTREMITIES: Left lower extremity and both upper extremities: No edema. No cyanosis. Right lower extremity has a wound VAC. NEUROLOGIC: The patient is awake, alert, and moving all 4 extremities. No focal deficit. MEDICATIONS: Aldactone, hydralazine, DuoNeb, Glucophage, Lasix, Lipitor, Lopressor, Lovenox, Maxipime, Norvasc, Percocet, Zestril, Zyvox. LABORATORY DATA: White blood cells 10.7, hemoglobin 11.5, hematocrit 34.5, platelets 351. Glucose 53. ASSESSMENT AND PLAN: The patient is a 71-year-old male with leukocytosis, anemia, diabetes mellitus. Seen by infectious disease, Dr. stanley. Sepsis secondary to right knee prepatellar abscess , irrigation and debridement and placement of the wound VAC operative #1. History of hypertension, chronic obstructive pulmonary disease, obstructive sleep apnea syndrome, obesity, history of posterior cruciate ligament . The patient is on Zyvox and cefepime, pending on fluid collection. Cultures and sensitivity. Seen by Dr. Aguillon, orthopedics. According to Dr. Aguillon, the patient has VAC with a good seal. CCU. Grossly neuro intact distally. Gram-stain, gram-negative rods. Continue wound VAC. Seen by Dr. Ramirez, podiatry, and Dr. Caraballo. Gastrointestinal and deep venous thrombosis prophylaxis. MRI is done that showed a fluid abscess , but negative for osteomyelitis. Restarted hyperbaric oxygen last week. We will follow up. Sally Mei MD cc: [id number] TT: 01/26/2017 23:50:59 Confirmation # [id number] Dictation # [id number] MTDD
[2017-01-27 07:58] LABS: ALB/GLOB RATIO 1.1 (1.1-1.8); ALKALINE PHOSPHATASE 57 U/L (38-133); ALT/SGPT 13 U/L (7-56); AST/SGOT 17 U/L (15-59); BILIRUBIN,TOTAL 0.5 mg/dL (0.2-1.3); BLOOD UREA NITROGEN 19 mg/dL (7-21); CALCIUM 8.9 mg/dL (8.4-10.5); CARBON DIOXIDE 26 mmol/L (21-33); CHLORIDE 104 mmol/L (98-107); GFR AFRICAN-AMERICAN > 60; GLUCOSE,RANDOM 86 mg/dL (70-110); POTASSIUM 4.9 mmol/L (3.6-5.0); SODIUM 139 mmol/L (132-148); TOTAL PROTEIN 6.9 g/dL (5.8-8.3)
[2017-01-27 08:12] LABS: HEMATOCRIT 34.7 % (42.0-52.0); MEAN CORPUSCULAR HEMOGLOBIN 31.2 pg (25.0-35.0); MEAN CORPUSCULAR HGB CONC 33.1 g/dl (31.0-37.0); MEAN PLATELET VOLUME 10.3 fl (7.0-11.0); RED CELL DISTRIBUTION WIDTH 13.9 % (11.5-14.5); WHITE BLOOD COUNT 6.9 10^3/ul (4.5-11.0)
[2017-01-27] MEDS: Enoxaparin 40 mg Syringe SC SCH (09:31)
[2017-01-27] MEDS: GlipiZIDE 10 mg SR Tab PO SCH (09:31)
[2017-01-27] MEDS: Cefepime IV 2 gm in NS 100 ML IVPB SCH ×2 (09:32→22:27)
[2017-01-27] MEDS: Linezolid 600 mg in D5W 300 ml 300 ML IVPB SCH ×2 (09:32→22:27)
--- NOTE | 2017-01-27 13:40 | CP.PCM.PN ---
Subjective - Date & Time of Evaluation Date of Evaluation: 01/27/17 Time of Evaluation: 09:55 - Subjective Subjective: Comfortable in bed, less pain in the right knee, no fevers overnight, no diarrhea, eating well. Objective - Vital Signs/Intake and Output Vital Signs (last 24 hours): Temp Pulse Resp BP Pulse Ox 97 F L 60 18 135/79 97 01/27/17 08:05 01/27/17 08:08 01/27/17 08:05 01/27/17 09:32 01/27/17 08:05 Intake and Output: 01/27/17 01/27/17 06:59 18:59 Intake Total 360 Output Total 1900 Balance -1540 - Medications Medications: Current Medications Albuterol/Ipratropium (Duoneb 3 Mg/0.5 Mg (3 Ml) Ud) 3 ml IH [id number] PRN PRN Reason: Shortness of Breath Amlodipine Besylate (Norvasc) 10 mg PO 1800 [facility] Last Admin: 01/26/17 17:28 Dose: 10 mg Enoxaparin Sodium (Lovenox) 40 mg SC DAILY [facility] PRN Reason: Protocol Last Admin: 01/27/17 09:31 Dose: 40 mg Furosemide (Lasix) 40 mg PO DAILY [facility] Last Admin: 01/27/17 09:32 Dose: 40 mg Gemfibrozil (Lopid) 600 mg PO BID [facility] Last Admin: 01/27/17 09:31 Dose: 600 mg Glipizide (Glucotrol Xl) 10 mg PO DAILY [facility] Last Admin: 01/27/17 09:31 Dose: 10 mg Hydralazine HCl (Apresoline) 25 mg PO BID [facility] Last Admin: 01/27/17 09:33 Dose: 25 mg Cefepime HCl (Maxipime 2gm) 100 mls @ 100 mls/hr IVPB Q12 [facility] PRN Reason: Protocol Stop: 01/28/17 22:46 Last Admin: 01/27/17 09:32 Dose: 100 mls/hr Linezolid (Zyvox 600mg/300ml D5w) 300 mls @ 200 mls/hr IVPB Q12 [facility] PRN Reason: Protocol Stop: 01/30/17 22:46 Last Admin: 01/27/17 09:32 Dose: 200 mls/hr Lisinopril (Zestril) 20 mg PO DAILY [facility] Last Admin: 01/27/17 09:33 Dose: 20 mg Metoprolol Tartrate (Lopressor) 50 mg PO BRK [facility] Last Admin: 01/27/17 08:08 Dose: 50 mg Oxycodone/Acetaminophen (Percocet 5/325 Mg Tab) 1 tab PO Q6H PRN PRN Reason: Pain, moderate (4-7) Stop: 01/27/17 13:06 Last Admin: 01/26/17 22:22 Dose: 1 tab Spironolactone (Aldactone) 25 mg PO DAILY [facility] Last Admin: 01/27/17 09:31 Dose: 25 mg - Labs Labs: 01/27/17 07:30 01/27/17 07:30 PT 11.5 Seconds (9.9-11.8) 01/23/17 14:00 INR 1.06 (0.93-1.08) 01/23/17 14:00 APTT 27.2 Seconds (23.7-30.8) 01/23/17 14:00 - Constitutional Appears: Non-toxic, No Acute Distress - Head Exam Head Exam: NORMAL INSPECTION - ENT Exam ENT Exam: Mucous Membranes Moist - Neck Exam Neck Exam: absent: Lymphadenopathy, Meningismus - Respiratory Exam Respiratory Exam: Decreased Breath Sounds - Cardiovascular Exam Cardiovascular Exam: +S1, +S2 - GI/Abdominal Exam GI & Abdominal Exam: Soft. absent: Tenderness Assessment and Plan - Assessment and Plan (Free Text) Plan: Assessment Sepsis secondary to right knee prepatellar abscess S/P irrigation ,debridement and placement of wound vacuum POD #2; wound cx so far showing no growth x 24 hours but showed gram negative bacilli on gram stain HTN DM COPD obstructive sleep apnea obesity with BMI 38 history of posterior cruciate ligament avulsion Plan continue Zyvox and Cefepime pending final fluid collection cx results; would target up to 10 days of antibiotics (from time of surgery) Will continue to follow clinically
--- NOTE | 2017-01-27 20:04 | PN ---
DATE: 01/27/2017 The patient is a 71-year-old male. The patient seen and examined on the bedside. The patient is sad , he lost his and was crying. Length of time, I have a discussion with him, tried to make him c omfortable, pay my condolence, even spoke to the professor of social work, Alem. She spent time with him and I talked to the patient's nursing staff also. Otherwise, no fever, no chills, no nausea, vomiting, d iarrhea. No hematuria, no hematochezia. No headache, no dizziness. No chest pain, no palpitation. PHYSICAL EXAMINATION: VITAL SIGNS: Temperature 97, pulse 60, respiratory rate 18, blood pressure 135/79, pulse oximetry 97 %. HEENT: Head normocephalic, atraumatic. Eyes: PERRLA. Extraocular muscles intact. Conjunctivae cl ear. Nose patent. Mucous membranes moist. NECK: Supple. No carotid bruit, no JVD, no thyromegaly. CHEST: Bilaterally symmetrical. HEART: S1 and S2 positive. LUNGS: Clear to auscultation. ABDOMEN: Soft. Bowel sounds positive. No organomegaly. EXTREMITIES: No edema, no cyanosis. NEUROLOGIC: Awake, alert, moving all 4 extremities. No focal deficits. MEDICATIONS: Norvasc, Lovenox, Lasix, Lopid, Glucotrol. All meds reviewed by me. LABORATORIES: White blood cell is 6.9, hemoglobin 11.5, hematocrit 34.7, platelets 383. Sodium 139, potassium 4.9, BUN , creatinine 1.2, glucose 86. ASSESSMENT AND PLAN: The patient is a 71-year-old male with anemia, sepsis secondary to right knee p repatellar abscess, status post irrigation and debridement and placement of wound VAC, postop day #2. Wound culture so far showing no growth at 24 hours, but showed gram-negative bacilli on Gram stain. History of hypertension, diabetes mellitus, chronic obstructive pulmonary disease, obstructive slee p apnea syndrome, obesity, body mass index 38%, history of posterior cruciate ligament evulsion. We will continue Zyvox and cefepime as per Dr. Uribe, infectious disease. Pending on final fluid collec tion culture and sensitivity, will target up to 10 days of antibiotics from the surgery. We will con tinue Norvasc for blood pressure, Lovenox for deep venous thrombosis prophylaxis. The patient is get ting Lopid for hypertriglyceridemia, getting Lasix, Glucotrol for diabetes, Zestril for blood pressur e, Lopressor also for blood pressure. We will follow up. Sally Mei MD cc: [id number] TT: 01/27/2017 20:03:57 Confirmation # [id number] Dictation # [id number] en
--- NOTE | 2017-01-27 20:38 | PN ---
DATE: 01/27/2017 REFERRING PHYSICIAN: Dr. Mei. SUBJECTIVE: The patient is out of bed to chair. Night was unremarkable. Did not use CPAP. No naus ea, no vomiting, no diarrhea, and no abdominal pain. Has a soft cast on that right lower extremity. Has a wound VAC for the right knee. OBJECTIVE GENERAL: In no acute distress. VITAL SIGNS: Temperature is 98, heart rate is , respiratory rate is 20, blood pressure was ____ _. HEAD, EARS, EYES, NOSE, AND THROAT: Moist mucous membranes. . Mallampati class IV. NECK: Supple JVD. LUNGS: Have a fair airflow with a few rhonchi. HEART: S1 . ABDOMEN: Soft and nontender. No organomegaly. EXTREMITIES: Soft cast on the right leg has a wound VAC on the right knee. NEUROLOGIC: . MEDICATIONS: He is on Aldactone 25 mg daily, hydralazine 25 mg twice a day, DuoNeb q. 6 hours, glipi zide XL 10 mg daily, Lasix 40 mg daily, 40 mg daily, cefepime 2 grams IV q. 12 hours, Norvasc 1 0 mg daily, Zestril 20 mg daily, 600 mg q. 12 hours. LABORATORY DATA: WBC 6.9, platelets are 383. Sodium 139, potassium 4.9, , BUN 19, creati nine , glucose 86, calcium 8.9. AST 17, ALT albumin is . MICROBIOLOGY DATA: Wound culture has Gram-positive cocci. IMPRESSION AND PLAN 1. Right knee abscess and cellulitis, requiring debridement. At present, he has a wound VAC and a s oft cast. 2. Chronic obstructive lung disease. 3. Obstructive sleep apnea syndrome. 4. Hypertension. 5. Diabetes. 6. Morbid obesity. 7. Degenerative joint disease. doing okay, with continued CPAP. Keep 45 degree. Gastric prophylaxis. Deep venou s thrombosis prophylaxis. Continue antibiotics. Need physical therapy. Thank you and will follow with you. Edilberto Caraballo MD cc: [id number] TT: 01/27/2017 18:35:44 Confirmation # [id number] Dictation # [id number] fn
[2017-01-28] MEDS: metroNIDAZOLE IV 500 mg/100 ml 100 ML IVPB SCH ×2 (08:31→22:21)
[2017-01-28] MEDS: Cefepime IV 2 gm in NS 100 ML IVPB SCH (09:37)
[2017-01-28] MEDS: Enoxaparin 40 mg Syringe SC SCH (09:37)
[2017-01-28] MEDS: GlipiZIDE 10 mg SR Tab PO SCH (09:37)
--- NOTE | 2017-01-28 11:17 | CP.PCM.PN ---
Subjective - Date & Time of Evaluation Date of Evaluation: 01/28/17 Time of Evaluation: 11:15 - Subjective Subjective: Pt feels better. Afebrile R knee wound VAC changed cellulitis significantly improved mild tenderness thigh and calf soft, NT VAC replaced. Good seal cont Abx as per ID Objective - Vital Signs/Intake and Output Vital Signs (last 24 hours): Temp Pulse Resp BP Pulse Ox 97.7 F 61 20 146/77 96 01/28/17 07:30 01/28/17 09:37 01/28/17 07:30 01/28/17 10:39 01/28/17 07:30 Intake and Output: 01/28/17 01/28/17 06:59 18:59 Intake Total 720 150 Output Total 1825 Balance -1105 150 - Medications Medications: Current Medications Albuterol/Ipratropium (Duoneb 3 Mg/0.5 Mg (3 Ml) Ud) 3 ml IH [id number] PRN PRN Reason: Shortness of Breath Amlodipine Besylate (Norvasc) 10 mg PO 1800 [facility] Last Admin: 01/27/17 17:52 Dose: 10 mg Enoxaparin Sodium (Lovenox) 40 mg SC DAILY [facility] PRN Reason: Protocol Last Admin: 01/28/17 09:37 Dose: 40 mg Furosemide (Lasix) 40 mg PO DAILY [facility] Last Admin: 01/28/17 10:39 Dose: 40 mg Gemfibrozil (Lopid) 600 mg PO BID [facility] Last Admin: 01/28/17 09:36 Dose: 600 mg Glipizide (Glucotrol Xl) 10 mg PO DAILY [facility] Last Admin: 01/28/17 09:37 Dose: 10 mg Hydralazine HCl (Apresoline) 25 mg PO BID [facility] Last Admin: 01/28/17 09:37 Dose: 25 mg Cefepime HCl (Maxipime 2gm) 100 mls @ 100 mls/hr IVPB Q12 [facility] PRN Reason: Protocol Stop: 01/28/17 22:46 Last Admin: 01/28/17 09:37 Dose: 100 mls/hr Linezolid (Zyvox 600mg/300ml D5w) 300 mls @ 200 mls/hr IVPB Q12 [facility] PRN Reason: Protocol Stop: 01/30/17 22:46 Last Admin: 01/27/17 22:27 Dose: 200 mls/hr Metronidazole (Flagyl) 100 mls @ 100 mls/hr IVPB Q8 [facility] PRN Reason: Protocol Stop: 02/04/17 08:16 Last Admin: 01/28/17 08:31 Dose: 100 mls/hr Lisinopril (Zestril) 20 mg PO DAILY [facility] Last Admin: 01/28/17 09:36 Dose: 20 mg Metoprolol Tartrate (Lopressor) 50 mg PO BRK [facility] Last Admin: 01/28/17 08:30 Dose: 50 mg Spironolactone (Aldactone) 25 mg PO DAILY [facility] Last Admin: 01/27/17 09:31 Dose: 25 mg - Labs Labs: 01/27/17 07:30 01/27/17 07:30 PT 11.5 Seconds (9.9-11.8) 01/23/17 14:00 INR 1.06 (0.93-1.08) 01/23/17 14:00 APTT 27.2 Seconds (23.7-30.8) 01/23/17 14:00
[2017-01-28] MEDS: Linezolid 600 mg in D5W 300 ml 300 ML IVPB SCH ×2 (11:41→22:18)
--- NOTE | 2017-01-28 17:10 | CP.PCM.PN ---
Subjective - Date & Time of Evaluation Date of Evaluation: 01/28/17 Time of Evaluation: 11:10 - Subjective Subjective: Seen patient while Dr. Aguillon was changing the dressings on the right knee, afebrile overnight, less pain in the right knee, no pus from the knee wound currently. Objective - Vital Signs/Intake and Output Vital Signs (last 24 hours): Temp Pulse Resp BP Pulse Ox 97.2 F L 59 L 18 144/79 99 01/27/17 16:00 01/27/17 16:00 01/27/17 16:00 01/27/17 16:00 01/27/17 16:00 Intake and Output: 01/28/17 01/28/17 06:59 18:59 Intake Total 720 150 Output Total 1825 Balance -1105 150 - Medications Medications: Current Medications Albuterol/Ipratropium (Duoneb 3 Mg/0.5 Mg (3 Ml) Ud) 3 ml IH [id number] PRN PRN Reason: Shortness of Breath Amlodipine Besylate (Norvasc) 10 mg PO 1800 [facility] Last Admin: 01/27/17 17:52 Dose: 10 mg Enoxaparin Sodium (Lovenox) 40 mg SC DAILY [facility] PRN Reason: Protocol Last Admin: 01/27/17 09:31 Dose: 40 mg Furosemide (Lasix) 40 mg PO DAILY [facility] Last Admin: 01/27/17 09:32 Dose: 40 mg Gemfibrozil (Lopid) 600 mg PO BID [facility] Last Admin: 01/27/17 17:52 Dose: 600 mg Glipizide (Glucotrol Xl) 10 mg PO DAILY [facility] Last Admin: 01/27/17 09:31 Dose: 10 mg Hydralazine HCl (Apresoline) 25 mg PO BID [facility] Last Admin: 01/27/17 17:52 Dose: 25 mg Cefepime HCl (Maxipime 2gm) 100 mls @ 100 mls/hr IVPB Q12 [facility] PRN Reason: Protocol Stop: 01/28/17 22:46 Last Admin: 01/27/17 22:27 Dose: 100 mls/hr Linezolid (Zyvox 600mg/300ml D5w) 300 mls @ 200 mls/hr IVPB Q12 [facility] PRN Reason: Protocol Stop: 01/30/17 22:46 Last Admin: 01/27/17 22:27 Dose: 200 mls/hr Metronidazole (Flagyl) 100 mls @ 100 mls/hr IVPB Q8 [facility] PRN Reason: Protocol Stop: 02/04/17 08:16 Lisinopril (Zestril) 20 mg PO DAILY [facility] Last Admin: 01/27/17 09:33 Dose: 20 mg Metoprolol Tartrate (Lopressor) 50 mg PO BRK [facility] Last Admin: 01/27/17 08:08 Dose: 50 mg Spironolactone (Aldactone) 25 mg PO DAILY [facility] Last Admin: 01/27/17 09:31 Dose: 25 mg - Labs Labs: 01/27/17 07:30 01/27/17 07:30 PT 11.5 Seconds (9.9-11.8) 01/23/17 14:00 INR 1.06 (0.93-1.08) 01/23/17 14:00 APTT 27.2 Seconds (23.7-30.8) 01/23/17 14:00 - Constitutional Appears: Non-toxic, No Acute Distress - Head Exam Head Exam: NORMAL INSPECTION - ENT Exam ENT Exam: Mucous Membranes Moist - Neck Exam Neck Exam: absent: Lymphadenopathy, Meningismus - Respiratory Exam Respiratory Exam: Decreased Breath Sounds - Cardiovascular Exam Cardiovascular Exam: +S1, +S2 - GI/Abdominal Exam GI & Abdominal Exam: Soft. absent: Tenderness - Extremities Exam Additional comments: right knee with medial area with pocket where the abscess formerly was, looks clean and dry Assessment and Plan - Assessment and Plan (Free Text) Plan: Assessment Sepsis secondary to right knee prepatellar abscess S/P irrigation ,debridement and placement of wound vacuum POD #3; wound cx are growing Prevotella (the gram negative on the gram stain) and Strep anginosus which is notorious for producing abscesses HTN DM COPD obstructive sleep apnea obesity with BMI 38 history of posterior cruciate ligament avulsion Plan continue Zyvox and add Flagyl (day 3) - would target up to 10 days of antibiotics (from time of surgery, ie 7 more days of antibiotics); noted sensitivities of the Strep anginosus (intermediate to Rocephin and this is why we are opting to use Zyvox) - discussed with Dr. Aguillon and Dr. Mei Will continue to follow clinically
--- NOTE | 2017-01-28 19:26 | PN ---
DATE: 01/28/2017 REFERRING PHYSICIAN: Dr. Mei SUBJECTIVE: The patient is lying in the bed, head at 45 degrees. Night was unremarkable. No headac he, no rhinitis, no nausea, no vomiting, no diarrhea. Mild right knee pain. No dysuria. OBJECTIVE: GENERAL: No acute distress. VITAL SIGNS: Temp is 98, heart rate is 52, respiratory rate is 20, blood pressure 142/78, pulse ox 9 6% on room air. HEENT: Moist mucous membranes. Crowded airway. Mallampati score is 4. NECK: Supple. No JVD. LUNGS: Have a fair airflow with a few rhonchi. HEART: S1 and S2. ABDOMEN: Soft, nontender, nondistended. EXTREMITIES: Has a wound VAC on the right knee, not much swelling. NEUROLOGIC: Awake, alert, follows simple command. MEDICATIONS: He is on Aldactone 25 mg daily, hydralazine 25 mg twice a day, DuoNeb q. 6 hours p.r.n. , Flagyl 500 mg q. 8 hours, glipizide 10 mg daily, Lasix 40 mg daily, Lopid 600 mg twice a day, metop rolol tartrate 50 mg daily, Lovenox 40 mg daily, Norvasc 10 mg daily, Zestril 20 mg daily, Zyvox 600 mg twice a day. Blood sugar this morning shows 119. IMPRESSION AND PLAN: Right knee abscess and cellulitis requiring debridement, has a wound VAC, chron ic obstructive lung disease, obstructive sleep apnea syndrome, hypertension, diabetes, morbid obesity , degenerative joint disease, sleep apnea syndrome. We will continue antibiotics. Encourage CPAP us e. Gastric prophylaxis, deep venous thrombosis prophylaxis. Fall precaution. Will benefit from the rapy. Thank you and we will follow with you. Edilberto Caraballo MD cc: [id number] TT: 01/28/2017 19:25:35 Confirmation # [id number] Dictation # [id number] en
--- NOTE | 2017-01-28 19:39 | PN ---
DATE: 01/28/2017 SUBJECTIVE: The patient seen and examined on the bedside while Dr. Aguillon was changing the patient's dressing and wound VAC. Infectious disease, Dr. Uribe, was standing also there talking about wound culture and sensitivity. Plan is the patient needs at least and wound looks better. Pain is less. Redness is better. PHYSICAL EXAMINATION: VITAL SIGNS: Temperature 97.2, pulse 59, blood pressure 144/79, respiratory rate 18, and pulse oximetry 99. HEENT: Head normocephalic, atraumatic. Eyes, PERRLA. Extraocular muscles intact. Conjunctivae pink. Eyelids unremarkable. Nose patent. Mucous membranes moist. NECK: Supple. No carotid bruit, JVD or thyromegaly. CHEST: Bilaterally symmetrical. HEART: S1, S2 positive. LUNGS: Clear to auscultation. ABDOMEN: Soft. Bowel sounds positive. No organomegaly. EXTREMITIES: No edema, no cyanosis in the upper extremities. Right lower extremity, right leg has wound that is taken care of by Dr. Aguillon. NEUROLOGIC: The patient is awake, alert. Cranial nerves II-XII are grossly intact. MEDICATIONS: Norvasc, Lovenox, Lasix, Lopid, Glucotrol, hydralazine, Maxipime, Zyvox, Flagyl, Zestril, Lopressor, Aldactone. LABORATORY DATA: We do not have recent labs today, but I reviewed old labs. ASSESSMENT AND PLAN: The patient is a 71-year-old male with anemia, has sepsis secondary to right knee prepatellar ulcer, status post irrigation and debridement, and placement of wound VAC, postop day #3. Wound VAC is changed by Dr. Aguillon by himself. Wound cultures are growing with gram-negative on the Gram stain and Strep anginosus, which is notorious for producing abscess as per ID. The patient has history of hypertension, diabetes mellitus, chronic obstructive pulmonary disease, obstructive sleep apnea syndrome, obesity, history of posterior cruciate ligament avulsion. We will continue Zyvox, added Flagyl day 3. Will target up to 10 days of antibiotics from the time of surgery , that will be 7 more days of antibiotics. Noted sensitivities of Strep anginosus Rocephin and this is why we are opting to use Zyvox. Discussion done with Dr. Uribe and Dr. Aguillon. We will try to do TCU for IV antibiotics. Meanwhile, continue wound care. Repeat labs. We will follow up. Sally Mei MD cc: [id number] TT: 01/28/2017 19:38:24 Confirmation # [id number] Dictation # [id number] gwen CANELA
[2017-01-29] MEDS: metroNIDAZOLE IV 500 mg/100 ml 100 ML IVPB SCH ×4 (06:13→22:07)
[2017-01-29] MEDS: GlipiZIDE 10 mg SR Tab PO SCH (09:48)
[2017-01-29] MEDS: Enoxaparin 40 mg Syringe SC SCH (09:48)
[2017-01-29] MEDS: Linezolid 600 mg in D5W 300 ml 300 ML IVPB SCH ×2 (09:48→22:07)
--- NOTE | 2017-01-29 11:11 | PN ---
DATE: 01/29/2017 The patient is in bed, in no acute distress, nontoxic. PHYSICAL EXAMINATION: VITAL SIGNS: Temperature is 97, blood pressure is 150/80, respiratory rate of 18. HEENT: Unremarkable. NECK: Supple. LUNGS: Have decreased breath sounds. HEART: Normal S1, S2. ABDOMEN: Soft. LABORATORY EXAMINATION: Reveals a white count of 6.9, hemoglobin 11. Chemistries reveals the patien t has a BUN of 19 and creatinine of 1.2. Urinalysis is noted. ASSESSMENT AND PLAN: A 71-year-old with sepsis with right knee prepatellar abscess, status post irri gation, debridement and placement of a wound VAC, postop day #4, growing Prevotella and strep in a pa tient with hypertension, diabetes, chronic obstructive pulmonary disease, obstructive sleep apnea, on Zyvox and Flagyl. Review of the orders reveals the Flagyl to be active and Zyvox to be active. The is moderate growth in the anaerobic coverage. Will add meropenem for gram-negative polymicrob ial coverage sine the anaerobes are positive. Chano Dubois MD cc: [id number] TT: 01/29/2017 11:10:35 Confirmation # [id number] Dictation # [id number] en
[2017-01-29] MEDS: Meropenem 1g/NS 100mL IVPB 100 ML IVPB SCH ×2 (11:32→22:08)
--- NOTE | 2017-01-29 18:46 | PN ---
DATE: 01/29/2017 REFERRING PHYSICIAN: Dr. Mei. SUBJECTIVE: The patient is lying in the bed, head at 45 degrees. [facility] He has right knee discomfort with a wound VAC. No leg swelling. No headache, no rhinitis, n o cough, no nausea, no vomiting, no diarrhea. OBJECTIVE: GENERAL: In no acute distress. VITAL SIGNS: Temperature is 98, heart rate is 58, respiratory rate is 20, blood pressure 150/81, pul se ox 96% on room air. HEENT: Moist mucous membranes. Crowded airway. Mallampati score is 4. NECK: Supple. No JVD. LUNGS: Has a fair airflow with a few rhonchi. HEART: S1, S2. ABDOMEN: Soft, nontender. No organomegaly. EXTREMITIES: There is no edema. NEUROLOGIC: Awake, alert, follows simple commands. MEDICATIONS: He is on Aldactone 25 mg daily, hydralazine 25 mg twice a day, DuoNebs q.6 hours p.r.n. , Flagyl 500 mg q.8 hours, glipizide 10 mg daily, Lasix 40 mg daily, Lopid 600 mg twice a day, metopr olol tartrate 50 mg daily, Lovenox 40 mg daily, meropenem 1 g IV q.12 hours, Norvasc 10 mg daily, Zes tril is 20 mg daily, Zyvox 600 mg twice a day. LABORATORY DATA: Reviewed and shows blood sugar this morning was 83. IMPRESSION AND PLAN: Right knee abscess with cellulitis requiring debridement, presently has a wound VAC of the right knee; chronic obstructive lung disease, obstructive sleep apnea syndrome, hypertens ion, diabetes, morbid obesity, degenerative joint disease, sleep apnea syndrome. When cleared by ID and thoracic surgery, may discharge to a subacute rehab facility. Continue gastric prophylaxis, deep venous thrombosis prophylaxis. Fall precautions. Continue bronchodilator. Sleep apnea precaution. Encourage CPAP use. Thank you and will follow with you. Edilberto Caraballo MD cc: [id number] TT: 01/29/2017 18:45:25 Confirmation # [id number] Dictation # [id number] dn
--- NOTE | 2017-01-29 20:28 | PN ---
DATE: 01/29/2017 SUBJECTIVE: The patient was seen and examined on the bedside, sitting on the chair, having wound VAC. Has a little bit of pain in the leg. No fever, no chills. No nausea, vomiting, diarrhea. No hematuria, hematochezia. No headache, no dizziness. PHYSICAL EXAMINATION: VITAL SIGNS: Temperature 98.6, pulse 70, blood pressure 120/80 , respiratory rate 18. HEENT: Head normocephalic, atraumatic. Eyes PERRLA. Extraocular muscles intact. Conjunctivae pink. Eyelids unremarkable. Nose patent. Mucous membranes moist. NECK: Supple. No carotid bruit, JVD, thyromegaly. CHEST: Bilaterally symmetrical. HEART: S1, S2 positive. LUNGS: Clear to auscultation. ABDOMEN: Soft. Bowel sounds present. No organomegaly. EXTREMITIES: Upper extremities no edema, no cyanosis. Right lower knee has wound VAC and has abscess drainage. NEUROLOGIC: The patient is awake, alert, oriented x 3. Cranial nerves II-XII grossly intact. MEDICATIONS: Aldactone, hydralazine, albuterol, Flagyl, glipizide, Lasix, Lopid , Lopressor, Lovenox, meropenem, amlodipine, Zestril, Zyvox. LABORATORY DATA: We do not have recent labs today, but reviewed old labs. Glucose 82, 202, 83, 197. ASSESSMENT AND PLAN: The patient is a 71-year-old male patient with right knee prepatellar abscess, status post irrigation, incision and drainage, debridement and placement of wound vacuum assisted closure. Postoperative day 4. Growing and strep in the patient with hypertension, diabetes mellitus, chronic obstructive lung disease, obstructive sleep apnea syndrome. On Zyvox, Flagyl. Review of the order reveals the Flagyl to be active and Zyvox to be active. The patient has moderate growth in the anaerobic coverage. We will add meropenem for gram-negative polymicrobial coverage since the anaerobes are positive, as per infectious disease, Dr. Dubois. The patient seen by Dr. Caraballo and Dr. Aguillon, the patient's surgeon. Gastrointestinal and deep venous thrombosis prophylaxis. Repeat labs. The patient is getting physical therapy. We will follow up. Sally Mei MD cc: [id number] TT: 01/29/2017 20:28:08 Confirmation # [id number] Dictation # [id number] sn MTDD
[2017-01-30] MEDS: metroNIDAZOLE IV 500 mg/100 ml 100 ML IVPB SCH ×3 (06:59→21:58)
[2017-01-30 07:16] LABS: MEAN CELL VOLUME 93.4 fL (80.0-105.0); MEAN CORPUSCULAR HEMOGLOBIN 30.7 pg (25.0-35.0); MEAN CORPUSCULAR HGB CONC 32.9 g/dl (31.0-37.0); MEAN PLATELET VOLUME 9.5 fl (7.0-11.0); RED CELL DISTRIBUTION WIDTH 13.6 % (11.5-14.5); WHITE BLOOD COUNT 7.3 10^3/ul (4.5-11.0)
[2017-01-30 07:31] LABS: BLOOD UREA NITROGEN 25 mg/dL (7-21); CALCIUM 9.2 mg/dL (8.4-10.5); CARBON DIOXIDE 27 mmol/L (21-33); CHLORIDE 100 mmol/L (98-107); GFR AFRICAN-AMERICAN > 60; GLUCOSE,RANDOM 63 mg/dL (70-110); POTASSIUM 4.6 mmol/L (3.6-5.0); SODIUM 138 mmol/L (132-148)
[2017-01-30] MEDS: GlipiZIDE 10 mg SR Tab PO SCH (10:13)
[2017-01-30] MEDS: Enoxaparin 40 mg Syringe SC SCH (10:14)
[2017-01-30] MEDS: Meropenem 1g/NS 100mL IVPB 100 ML IVPB SCH ×2 (10:14→23:11)
[2017-01-30] MEDS: Linezolid 600 mg in D5W 300 ml 300 ML IVPB SCH (10:33)
[2017-01-30] MEDS ORDERED: Lidocaine 2% Inj (20ml) ONE (11:48)
--- NOTE | 2017-01-30 12:30 | PCM.SURG1 ---
Surgeon's Initial Post Op Note - Surgeon's Notes Surgeon: Boone Kenney MD Squirrel Man: NONE Type of Anesthesia: Local Pre-Operative Diagnosis: Poor venous access Operative Findings: Patent left basilic vein. Post-Operative Diagnosis: Poor venous access Operation Performed: Left single lumen picc placement, basilic vein, 43 cm. Tip in SVC. Specimen/Specimens Removed: None Estimated Blood Loss: EBL {In ML}: 2 Blood Products Given: N/A Drains Used: No Drains Post-Op Condition: Fair Date of Surgery/Procedure: 01/30/17 Time of Surgery/Procedure: 12:25
--- NOTE | 2017-01-30 17:54 | CP.PCM.PN ---
Subjective - Date & Time of Evaluation Date of Evaluation: 01/30/17 Time of Evaluation: 10:00 - Subjective Subjective: Comfortable in bed, not in distress, no fevers overnight. Less pain in the right knee. Objective - Vital Signs/Intake and Output Vital Signs (last 24 hours): Temp Pulse Resp BP Pulse Ox 98.8 F 99 H 18 150/82 58 L 01/30/17 16:00 01/30/17 16:00 01/30/17 16:00 01/30/17 16:00 01/30/17 16:00 Intake and Output: 01/30/17 01/30/17 06:59 18:59 Intake Total 540 500 Output Total 1400 200 Balance -860 300 - Medications Medications: Current Medications Albuterol/Ipratropium (Duoneb 3 Mg/0.5 Mg (3 Ml) Ud) 3 ml IH [id number] PRN PRN Reason: Shortness of Breath Amlodipine Besylate (Norvasc) [address] [facility] Last Admin: 01/30/17 17:10 Dose: 10 mg Enoxaparin Sodium (Lovenox) [address] [facility] PRN Reason: Protocol Last Admin: 01/30/17 10:14 Dose: Not Given Furosemide (Lasix) [address] [facility] Last Admin: 01/30/17 10:13 Dose: 40 mg Gemfibrozil (Lopid) [address] [facility] Last Admin: 01/30/17 17:10 Dose: 600 mg Glipizide (Glucotrol Xl) [address] [facility] Last Admin: 01/30/17 10:13 Dose: 10 mg Hydralazine HCl (Apresoline) [address] [facility] Last Admin: 01/30/17 17:10 Dose: 25 mg Metronidazole (Flagyl) 100 mls @ 100 mls/hr IVPB Q8 MEHREEN PRN Reason: Protocol Stop: 02/04/17 08:16 Last Admin: 01/30/17 13:11 Dose: 100 mls/hr Meropenem 1g/NS 100mL IVPB (Meropenem 1g/Ns 100ml Ivpb) 100 mls @ 100 mls/hr IVPB Q12 MEHREEN PRN Reason: Protocol Stop: 02/07/17 10:34 Last Admin: 01/30/17 10:14 Dose: 100 mls/hr Linezolid (Zyvox 600mg/300ml D5w) 300 mls @ 200 mls/hr IVPB Q12 MEHREEN PRN Reason: Protocol Stop: 02/06/17 10:01 Last Admin: 01/30/17 10:33 Dose: 200 mls/hr Lisinopril (Zestril) [address] [facility] Last Admin: 01/30/17 10:13 Dose: 20 mg Metoprolol Tartrate (Lopressor) [address] [facility] Last Admin: 01/30/17 06:59 Dose: 50 mg Spironolactone (Aldactone) [address] [facility] Last Admin: 01/30/17 17:10 Dose: 25 mg - Labs Labs: 01/30/17 06:50 01/30/17 06:50 PT 11.5 Seconds (9.9-11.8) 01/23/17 14:00 INR 1.06 (0.93-1.08) 01/23/17 14:00 APTT 27.2 Seconds (23.7-30.8) 01/23/17 14:00 - Constitutional Appears: Non-toxic, No Acute Distress - Head Exam Head Exam: NORMAL INSPECTION - ENT Exam ENT Exam: Mucous Membranes Moist - Neck Exam Neck Exam: absent: Lymphadenopathy, Meningismus - Respiratory Exam Respiratory Exam: Decreased Breath Sounds - Cardiovascular Exam Cardiovascular Exam: +S1, +S2 - GI/Abdominal Exam GI & Abdominal Exam: Soft. absent: Tenderness Assessment and Plan - Assessment and Plan (Free Text) Plan: Assessment Sepsis secondary to right knee prepatellar abscess S/P irrigation ,debridement and placement of wound vacuum POD #5; wound cx are growing Prevotella (the gram negative on the gram stain) and Strep anginosus which is notorious for producing abscesses HTN DM COPD obstructive sleep apnea obesity with BMI 38 history of posterior cruciate ligament avulsion Plan continue Zyvox and MErrem and Flagyl (day 5) - would target up to 10 days of antibiotics (from time of surgery, ie 5 more days of antibiotics); noted sensitivities of the Strep anginosus (intermediate to Rocephin and this is why we are opting to use Zyvox) - discussed with Dr. Aguillon and Dr. Mei Will continue to follow clinically
--- NOTE | 2017-01-30 18:27 | PN ---
DATE: 01/30/2017 REFERRING PHYSICIAN: Dr. Mei. SUBJECTIVE: He is lying in the bed, head at 45 degrees. Night was unremarkable. No headache, no ti nnitus, no nausea, no vomiting, no diarrhea. Has a wound VAC in the right knee, getting a PICC line for antibiotics. OBJECTIVE: GENERAL: No acute distress. VITAL SIGNS: Temperature is 98, heart rate 99, respiratory rate is 20, blood pressure 150/82, pulse ox 98% on room air. HEENT: Moist mucous membrane. No ulcer or thrush noted. NECK: Supple. No JVD. LUNGS: Fair airflow with rhonchi. HEART: S1, S2. ABDOMEN: Soft, nontender. No organomegaly. EXTREMITIES: Has a right knee wound vac. NEUROLOGIC: Awake, alert, follows simple commands. MEDICATIONS: He is on Aldactone 20 mg daily, hydralazine 25 mg twice a day, DuoNeb q. 6 hours, Flagy l 500 mg q. 8 hours, glipizide 10 mg daily, Lasix 40 mg daily, Lopid 600 mg twice a day, metoprolol tartrate 50 mg daily, Lovenox 40 mg daily, meropenem 1 g q. 12 hours, Norvasc 10 mg daily, Zestril 2 0 mg daily, Zyvox 600 mg twice a day. LABORATORY DATA: Shows hemoglobin 12.5, hematocrit 38.0, WBC 7.3, platelet count is 434. Sodium 138 , potassium 4.6, chloride 100, bicarbonate 27, BUN 25, creatinine 1.1, glucose 63, calcium 9.2. IMPRESSION AND PLAN: Right knee abscess with cellulitis requiring debridement, has a wound VAC, cafeteria or lunchroom checker dane obstructive lung disease, obstructive sleep apnea syndrome, hypertension, diabetes, morbid obesit y, degenerative joint disease, sleep apnea syndrome. Antibiotics as per infectious diseases. Encour age BiPAP use, bronchodilators. Gastric prophylaxis, deep vein thrombosis prophylaxis. Will benefit from rehabilitation. Thank you and will follow with you. Edilberto Caraballo MD cc: [id number] TT: 01/30/2017 18:26:57 Confirmation # [id number] Dictation # [id number] jn
[2017-01-31] MEDS: Linezolid 600 mg in D5W 300 ml 300 ML IVPB SCH ×3 (00:04→23:00)
--- NOTE | 2017-01-31 04:31 | PN ---
DATE: 01/30/2017 The patient is a 71-year-old male. SUBJECTIVE: The patient was seen and examined on the bedside, looks comfortable. No nausea, vomiting, or diarrhea. No hematuria or hematochezia. No fever. No chills. No headache. No dizziness. Still has a wound VAC on the right knee. Getting PICC line for continuity of the antibiotics. PHYSICAL EXAMINATION: VITAL SIGNS: Temperature 98, heart rate 99, respiratory rate 20, blood pressure 120/82, pulse oximetry 98% on room air. HEENT: Head normocephalic, atraumatic. Eyes: PERRLA. Extraocular muscles intact. Conjunctivae pink. Eyelids unremarkable. Nose patent. NECK: Supple. No carotid bruit, JVD, or thyromegaly. CHEST: Bilaterally symmetrical. HEART: S1, S2 positive. LUNGS: Fair airflow with few rhonchi. ABDOMEN: Soft, nontender. No organomegaly. EXTREMITIES: No edema. No cyanosis. Except that right knee has a wound VAC. NEUROLOGIC: The patient is awake, alert, follows simple commands. MEDICATIONS: Aldactone, hydralazine, DuoNeb, Flagyl, glipizide, Lasix, Lopid, metoprolol, Lovenox, meropenem, Zestril, Zyvox. LABORATORY DATA: Hemoglobin 12.5, hematocrit 38.0, white blood cells 7.3, platelets 434. Sodium 135, potassium 4.7, BUN 25, creatinine 1.1, glucose 53. ASSESSMENT AND PLAN: The patient is a 71-year-old male with right knee abscess with cellulitis requiring debridement, has wound VAC, chronic obstructive lung disease, obstructive sleep apnea syndrome, hypertension, asthma, diabetes mellitus, morbid obesity, degenerative joint disease, sleep apnea syndrome. The patient is getting antibiotics intravenously. Encouraged BiPAP, bronchodilators, gastric prophylaxis, deep venous thrombosis prophylaxis. Trying to get rehab TCU for the patient. The patient is seen by Dr. Caraballo, Dr. Gm Uribe, status post irrigation and debridement of the right knee abscess, placement of wound VAC, POD #5. Wound cultures are growing Prevotella , gram-negative on Gram stain and Streptococcus anginosus, which is notorious for producing abscesses. and continue Zyvox, Merrem, and Flagyl day #5. Need at least 10 days of IV antibiotics, 5 more days of antibiotics depend on the sensitivity to Streptococcus anginosus. Continue present treatment. Repeat labs. We will follow up. Sally Mei MD cc: [id number] TT: 01/31/2017 04:30:29 Confirmation # [id number] Dictation # [id number] MTDD
[2017-01-31] MEDS: metroNIDAZOLE IV 500 mg/100 ml 100 ML IVPB SCH ×3 (06:33→21:10)
[2017-01-31] MEDS: Enoxaparin 40 mg Syringe SC SCH (10:57)
[2017-01-31] MEDS: GlipiZIDE 10 mg SR Tab PO SCH (11:01)
[2017-01-31] MEDS: Meropenem 1g/NS 100mL IVPB 100 ML IVPB SCH ×2 (11:02→22:23)
--- NOTE | 2017-01-31 21:24 | PN ---
DATE: 01/31/2017 REFERRING PHYSICIAN: Dr. Mei. SUBJECTIVELY: The patient is sitting side of the bed. Night was unremarkable. No headaches, no rhi nitis. No cough, no shortness of breath, no chest pain. Still has a right knee wound VAC. Received a PICC line for antibiotics. OBJECTIVELY: In no acute distress. Temp is 98, heart rate is 60, respiratory rate is 20, blood pressure 146/81, pulse ox 98% on room air . HENT: Moist mucous membranes. Crowded airway. Mallampati score is 4. NECK: Supple. No JVD. LUNGS: Has a fair airflow with few rhonchi. HEART: S1, S2. ABDOMEN: Soft, nontender. No organomegaly. EXTREMITIES: Right knee has a wound VAC. No edema noted. NEUROLOGICALLY: Awake, alert. Follows simple commands. MEDICATIONS: He is on Aldactone 25 mg daily, hydralazine 25 mg twice a day, albuterol/Atrovent nebul izer q. 6 hours p.r.n., Flagyl 500 mg q. 8 hours, glipizide 10 mg daily, Lasix is at 40 mg daily, Lop id at 600 mg twice a day, metoprolol tartrate 50 mg daily, Lovenox 40 mg daily. He is on meropenem 1 g IV q. 12 hours, Norvasc 10 mg daily, Zestril 20 mg daily, Zyvox 600 mg q. 12 hours. LABORATORY DATA: Shows blood sugar this morning is 149. IMPRESSION AND PLAN: Right knee abscesses with cellulitis requiring debridement. Presently, has a wound VAC. Chronic obs tructive lung disease, obstructive sleep apnea syndrome, hypertension, diabetes, morbid obesity, dege nerative joint disease, sleep apnea syndrome. Pulmonary point of view, doing well. Continue bronchodilator. Keep head at 45 degree. Encourage CP AP use. Gastric prophylaxis, DVT prophylaxis. Antibiotics as per infectious diseases. Physical therapy. Thank you, and will follow with you. Edilberto Caraballo MD cc: [id number] TT: 01/31/2017 21:24:25 Confirmation # [id number] Dictation # [id number] jn
--- NOTE | 2017-02-01 00:54 | PN ---
DATE: 01/31/2017 SUBJECTIVE: The patient is a 71-year-old male. The patient is seen and examined at the bedside, sta tus post PICC line placement, has a wound VAC, getting IV antibiotics. No nausea, vomiting, or diarr hea. No hematuria or hematochezia. No swelling of the upper extremities. No fever, no chills. PHYSICAL EXAMINATION: VITAL SIGNS: Temperature is 98.2, pulse 60, blood pressure 142/81, respiratory rate 18. HEENT: Head normocephalic, atraumatic. Eyes: PERRLA, extraocular muscles intact. Conjunctivae pin [place]. Eyelids unremarkable. Nose patent. Mucous membranes moist. NECK: Supple. No carotid bruit, JVD, or thyromegaly. CHEST: Bilaterally symmetrical. HEART: S1, S2 positive. LUNGS: Clear to auscultation. ABDOMEN: Soft. Bowel sounds present. No organomegaly. EXTREMITIES: No edema, no cyanosis. Lower extremity, right knee has a wound VAC. NEUROLOGIC: The patient is awake, alert, and moving all 4 extremities. No focal deficit, oriented x 3. MEDICATIONS: Aldactone, hydralazine, DuoNeb, Flagyl, Glucotrol, Lasix, Lipitor, Lopressor, Lovenox, meropenem, Norvasc, Zestril, Zyvox. LABORATORY DATA: White blood cells 7.3, hemoglobin 12.5, hematocrit 38.0, platelets 434, glucose 14 9 and 178. ASSESSMENT AND PLAN: The patient is a 71-year-old male with anemia, history of leukocytosis; improve d, uncontrolled diabetes mellitus, history of chronic obstructive pulmonary disease, obstructive slee p apnea syndrome, obesity, right knee abscess with cellulitis requiring debridement; has a wound VAC, chronic obstructive lung disease, hypertension, degenerative joint disease. Encouraged BiPAP use, b ronchodilators, gastric prophylaxis, deep vein thrombosis prophylaxis. Got a PICC line. Following t he completion of IV antibiotics, we will continue antibiotics as per infectious disease; Dr. Kilo Uribe, history of posterior cruciate ligament ablation. Continue Zyvox, meropenem, Flagyl; today is day 5; at least needs more than 10 days, physical therapy. Dr. Aguillon is the orthopedist on the ne se. We will follow up. Sally Mei MD cc: [id number] TT: 02/01/2017 00:53:48 Confirmation # [id number] Dictation # [id number] vn
[2017-02-01] MEDS: metroNIDAZOLE IV 500 mg/100 ml 100 ML IVPB SCH ×2 (05:12→13:59)
[2017-02-01 08:20] VITALS: BP 147/89; PULSE 58
[2017-02-01 08:47] VITALS: RESP 20; TEMP 97.6; O2SAT 98
[2017-02-01] MEDS: Enoxaparin 40 mg Syringe SC SCH (10:28)
[2017-02-01] MEDS: Meropenem 1g/NS 100mL IVPB 100 ML IVPB SCH (10:28)
[2017-02-01] MEDS: GlipiZIDE 10 mg SR Tab PO SCH (10:28)
[2017-02-01] MEDS: Linezolid 600 mg in D5W 300 ml 300 ML IVPB SCH (10:32)
--- NOTE | 2017-02-01 13:02 | VASCULAR ---
PROCEDURE: Date of procedure: 01/30/2017 Procedure: 1. Placement of a left arm PICC with ultrasound and fluoroscopic guidance, CPT 47425 2. PICC tip confirmation with spot radiograph and is in the superior vena cava Medications: 1 percent lidocaine HISTORY: Bacteremia requiring long-term IV antibiotics TECHNIQUE: Following informed consent and procedure time-out, the patient placed supine on the interventional table and the left arm prepped and draped in the usual sterile fashion. Ultrasound showed a patent and compressible left basilic vein. After the skin was anesthetized with lidocaine, the basilic vein was accessed with micro micropuncture technique using ultrasound guidance. A guidewire was then advanced under fluoroscopic guidance into the superior vena cava. An image documenting ultrasound guidance for vascular access was permanently saved. The length of the single-lumen 5 [place] PICC was trimmed to 43 centimeters and advanced through a peel-away sheath. The PICC was position with tip of PICC confirm a spot radiograph the superior vena cava. The PICC was secured to the patient's skin. The PICC was flushed. A biopatch and sterile dressing was applied. IMPRESSION: Placement of a single-lumen, a 5 [place] PICC left basilic vein trimmed to 43 cm. The tip of the PICC is confirmed with spot radiograph and is in the superior vena cava.
--- NOTE | 2017-02-01 13:57 | PN ---
DATE: 02/01/2017 REFERRING PHYSICIAN: Dr. Mei SUBJECTIVE: The patient is sitting side of the bed, having lunch. Night was unremarkable. No heada agnes, no rhinitis, no nausea, no vomiting, no diarrhea. Has right knee, some discomfort. Has a wound VAC. OBJECTIVE: GENERAL: No acute distress. VITAL SIGNS: Temp is 98, heart rate is 58, respiratory rate is 20, blood pressure 147/87 and pulse o x 98% on room air. HEENT: Moist mucous membrane. Crowded airway. NECK: Supple. No JVD. LUNGS: Has a fair airflow with rhonchi. HEART: S1, S2. ABDOMEN: Soft, nontender, nondistended. EXTREMITIES: Right knee has a wound VAC, otherwise unremarkable. NEUROLOGIC: Awake, alert, follows simple command. MEDICATIONS: The patient is on Aldactone 25 mg daily, hydralazine 25 mg twice a day, DuoNeb q.6 hour s p.r.n., Flagyl 500 mg daily, glipizide 10 mg daily, Lasix 40 mg daily, Lopid 600 mg twice a day, me toprolol tartrate 50 mg daily, Lovenox 40 mg daily, meropenem 1 g IV q.12 hours, Norvasc 10 mg daily, Zestril 20 mg daily, Zyvox 600 mg q.12 hours. LABORATORY DATA: Reviewed. Blood sugar this morning was 134. IMPRESSION AND PLAN: Right knee abscess with cellulitis requiring debridement, presently he has a wo und vacuum assisted closure; chronic obstructive lung disease, obstructive sleep apnea syndrome, hype rtension, diabetes, morbid obesity, degenerative joint disease, sleep apnea syndrome. Pulmonary poin t of view, continue bronchodilator, keep head elevated at 45 degree, encourage continuous positive ai rway pressure use. Fall precaution. Gastric prophylaxis, deep venous thrombosis prophylaxis. Antib iotics as per infectious diseases. Thank you and we will follow with you. Edilberto Caraballo MD cc: [id number] TT: 02/01/2017 13:56:52 Confirmation # [id number] Dictation # [id number] sn
--- NOTE | 2017-02-01 18:06 | CP.PCM.PN ---
Subjective - Date & Time of Evaluation Date of Evaluation: 02/01/17 Time of Evaluation: 09:35 - Subjective Subjective: Comfortable in bed, afebrile overnight, less pain in the right knee. Objective - Vital Signs/Intake and Output Vital Signs (last 24 hours): Temp Pulse Resp BP Pulse Ox 97.6 F 58 L 20 147/89 98 02/01/17 06:00 02/01/17 10:27 02/01/17 06:00 02/01/17 10:28 02/01/17 06:00 Intake and Output: 02/01/17 02/01/17 06:59 18:59 Intake Total 300 0 Output Total 900 600 Balance -600 -600 - Labs Labs: 01/30/17 06:50 01/30/17 06:50 PT 11.5 Seconds (9.9-11.8) 01/23/17 14:00 INR 1.06 (0.93-1.08) 01/23/17 14:00 APTT 27.2 Seconds (23.7-30.8) 01/23/17 14:00 - Constitutional Appears: Non-toxic, No Acute Distress - Head Exam Head Exam: NORMAL INSPECTION - ENT Exam ENT Exam: Mucous Membranes Moist - Neck Exam Neck Exam: absent: Lymphadenopathy, Meningismus - Respiratory Exam Respiratory Exam: Decreased Breath Sounds - Cardiovascular Exam Cardiovascular Exam: +S1, +S2 - GI/Abdominal Exam GI & Abdominal Exam: Soft. absent: Tenderness Assessment and Plan - Assessment and Plan (Free Text) Plan: Assessment Sepsis secondary to right knee prepatellar abscess S/P irrigation ,debridement and placement of wound vacuum POD #7; wound cx are growing Prevotella (the gram negative on the gram stain) and Strep anginosus which is notorious for producing abscesses; clinically improving HTN DM COPD obstructive sleep apnea obesity with BMI 38 history of posterior cruciate ligament avulsion Plan continue Zyvox and MErrem and Flagyl (day 7) - would target up to 10 days of antibiotics (from time of surgery, ie 3 more days of antibiotics); noted sensitivities of the Strep anginosus (intermediate to Rocephin and this is why we are opting to use Zyvox) - discussed with Dr. Aguillon and Dr. Mei previously Will continue to follow clinically while the patient is in the hospital
== END 2017-02-01 15:02 | DRG 854 ==
LOC: ED 13:21 → ERH 15:08 → 3RSO 16:45
PROVIDERS: ADMIT Internal Medicine; ATTEND Internal Medicine
PROC: 0JDN3ZZ Extraction of Right Lower Leg Subcutaneous Tissue and Fascia, Percutaneous Approach (ICD-10-PCS; principal; 2017-01-25 08:30)
PROC: 02HV33Z Insertion of Infusion Device into Superior Vena Cava, Percutaneous Approach (ICD-10-PCS; 2017-01-30)
PROC: B54NZZA Ultrasonography of Left Upper Extremity Veins, Guidance (ICD-10-PCS; 2017-01-30)
DX: A41.9 Sepsis, unspecified organism (principal); L02.415 Cutaneous abscess of right lower limb; L03.115 Cellulitis of right lower limb; E11.622 Type 2 diabetes mellitus with other skin ulcer; L97.819 Non-pressure chronic ulcer of other part of right lower leg with unspecified severity; E11.65 Type 2 diabetes mellitus with hyperglycemia; J44.9 Chronic obstructive pulmonary disease, unspecified; D64.9 Anemia, unspecified; I10 Essential (primary) hypertension; F17.210 Nicotine dependence, cigarettes, uncomplicated; G47.33 Obstructive sleep apnea (adult) (pediatric); E66.9 Obesity, unspecified; Z68.38 Body mass index [BMI] 38.0-38.9, adult; M19.90 Unspecified osteoarthritis, unspecified site; E78.2 Mixed hyperlipidemia; B96.89 Other specified bacterial agents as the cause of diseases classified elsewhere; B95.4 Other streptococcus as the cause of diseases classified elsewhere; J45.909 Unspecified asthma, uncomplicated; Z79.84 Long term (current) use of oral hypoglycemic drugs; Z91.19 Patient's noncompliance with other medical treatment and regimen

== ENCOUNTER 2017-11-15 07:06 | Emergency (ER) | payer MEDICARE ==
[2017-11-15 07:09] VITALS: BMI 40.7
[2017-11-15 07:18] VITALS: O2SAT 95
--- NOTE | 2017-11-15 07:49 | ED PDOC ---
Arrival/HPI - General Chief Complaint: Altered Mental Status Time Seen by Provider: 11/15/17 07:14 Historian: Patient - History of Present Illness Narrative History of Present Illness (Text): 11/15/17 07:37 A 72 year old male, whose past medical history includes hypertension, COPD, and diabetes, is brought in by Mishra and presents to the emergency department complaining of hypoglycemia. Patient reports he woke up this morning and had difficulty getting up prior to arrival. Blood sugar was measured and found to be low. Patient was unable to move around well and was confused as to why it was happening. He notes experiencing lightheadedness, dizziness, and cough ( from cold he's had for 3 days now). Patient mentions feeling normal yesterday and episode has never occurred before. Denies any fever, shortness of breath, nasal congestion, dysuria, urinary output changes, appetite changes, headache, or any other complaints at this time. Also he mentions taking medications for hypertension and cold. PMD: Dr. Mei Time/Duration: Prior to Arrival Symptom Onset: Sudden Context: Home Past Medical History - Provider Review Nursing Documentation Reviewed: Yes - Infectious Disease Hx of Infectious Diseases: None - Tetanus Immunization Tetanus Immunization: Unknown - Cardiac Hx Cardiac Disorders: Yes Hx Hypertension: Yes - Pulmonary Hx Chronic Obstructive Pulmonary Disease (COPD): Yes - Neurological Hx Neurological Disorder: No - HEENT Hx HEENT Disorder: No - Renal Hx Renal Disorder: No - Endocrine/Metabolic Hx Diabetes Mellitus Type 2: Yes - Hematological/Oncological Hx Blood Transfusions: No - Integumentary Hx Dermatological Disorder: Yes - Musculoskeletal/Rheumatological Hx Musculoskeletal Disorders: Yes Hx Falls: Yes (TRIPPED OVER CARPET IN [facility] 08/20/17) - Gastrointestinal Hx Gastrointestinal Disorders: No - Genitourinary/Gynecological Hx Genitourinary Disorders: No - Psychiatric Hx Psychophysiologic Disorder: No Hx Substance Use: No - Anesthesia Hx Anesthesia Reactions: No Hx Malignant Hyperthermia: No Family/Social History - Physician Review Nursing Documentation Reviewed: Yes Family/Social History: No Known Family HX Smoking Status: Former Smoker Hx Alcohol Use: No Hx Substance Use: No Allergies/Home Meds Allergies/Adverse Reactions: Allergies ropinirole HCl [From Requip] Allergy (Severe, Verified 01/23/17 13:25) ANGIOEDEMA swollen tongue Home Medications: Home Meds Medication Instructions Recorded Confirmed Enalapril Maleate [Vasotec] 20 mg PO DAILY 08/20/16 11/15/17 GlipiZIDE SR [Glucotrol XL] 10 mg PO DAILY 08/20/16 11/15/17 Spironolactone [Aldactone] 25 mg PO DAILY 08/20/16 11/15/17 amLODIPine [Norvasc] 10 mg PO DAILY 08/20/16 11/15/17 Furosemide [Lasix] 40 mg PO BID 01/23/17 11/15/17 Albuterol HFA [Ventolin HFA 90 90 mcg IH QID 11/15/17 11/15/17 mcg/actuation (8 g)] Cetirizine HCl [Children's Wal-Zyr] 1 mg PO DAILY 11/15/17 11/15/17 Fluticasone Propionate [Flovent 50 mcg INH DAILY 11/15/17 11/15/17 Diskus] Montelukast Sodium [Singulair] 10 mg PO DAILY 11/15/17 11/15/17 Review of Systems - Physician Review All systems were reviewed & negative as marked: Yes - Review of Systems Constitutional: absent: Fevers ENT: absent: Other (no nasal congestion) Respiratory: Cough (from cold he has now for 3 days). absent: SOB Gastrointestinal: absent: Appetite Changes Genitourinary Male: absent: Dysuria, Urinary Output Changes Neurological: Dizziness, Other (lightheadedness). absent: Headache Physical Exam Vital Signs Reviewed: Yes Vital Signs Temp Pulse Resp BP Pulse Ox 11/15/17 11:57 69 18 135/64 95 11/15/17 09:06 98.8 F 72 18 125/67 95 11/15/17 07:06 98 F 78 20 137/65 95 Temperature: Afebrile Blood Pressure: Normal Pulse: Regular Respiratory Rate: Normal Appearance: Positive for: Well-Appearing Pain Distress: None Mental Status: Positive for: Alert and Oriented X 3 Finger Stick Blood Glucose: 74 - Systems Exam Head: Present: Atraumatic Pupils: Present: PERRL Extroacular Muscles: Present: EOMI Mouth: Present: Moist Mucous Membranes Pharnyx: Present: Normal. No: ERYTHEMA Neck: Present: Normal Range of Motion Respiratory/Chest: Present: Clear to Auscultation, Good Air Exchange. No: Respiratory Distress, Accessory Muscle Use Cardiovascular: Present: Regular Rate and Rhythm, Normal S1, S2. No: Murmurs Abdomen: Present: Normal Bowel Sounds. No: Tenderness, Distention Back: Present: Normal Inspection Upper Extremity: Present: Normal Inspection, NORMAL PULSES Lower Extremity: Present: Edema (+1 edema), NORMAL PULSES Neurological: Present: GCS=15, CN II-XII Intact, Speech Normal, Motor Func Grossly Intact, Normal Sensory Function, Normal Cerebellar Funct, Norm Deep Tendon Reflexes, Gait Normal, Memory Normal, Other (no focal deficits) Skin: Present: Normal Color Psychiatric: Present: Alert, Oriented x 3, Normal Insight, Normal Concentration Medical Decision Making ED Course and Treatment: 11/15/17 07:46 Impression: 72 year old male with hypoglycemia, lightheadedness and dizziness. Physical exam shows neuro examination is all normal; moist mucous membranes; lungs are clear; lower extremity is +1 edema. Differential Diagnosis included but are not limited to: Hypoglycemia secondary to Diet vs. Medications vs. Infection Plan: -- EKG -- Chest X-ray -- Labs -- Blood Culture -- Urine Culture -- Urinalysis -- Serology Flu Test -- Reassess and disposition Prior Visits: Notes and results from previous visits were reviewed. Patient was last seen in the emergency department on 01/23/2017 for right knee infection. Patient was admitted. Progress Notes: EKG: Ordered, reviewed, and independently interpreted the EKG. Rate : 73 BPM Rhythm : NSR Interpretation : Right Bundle Branch Block, with non-specific ST-changes. Comparison : No previous EKG for comparison. 11/15/2017 08:51 Chest X-ray IMPRESSION: No active disease. Dictator: Louis Weinberg 11/15/17 12:30 Patient's labs reviewed. FS Glucose improved. UA negative for UTI. CXR negative for PNA. Patient no longer having any symptoms. He is able to walk in the ED without any lightheadedness or dizziness or any concerns. He was seen in the ED by Dr. Mei who will make sure he follows up as an outpatient. She is aware of his elevated creatinine and will f/u. Patient son came to pick him up and he and patient feel comfortable with plan. - Critical Care Critical Care Minutes: 30 minutes - Lab Interpretations Lab Results: 11/15/17 07:30 11/15/17 07:30 Lab Results 11/15/17 12:12: POC Glucose (mg/dL) 101 11/15/17 11:50: Urine Color Yellow, Urine Appearance Clear, Urine pH 6.0, Ur Specific [place] 1.020, Urine Protein 30 H, Urine Glucose (UA) Negative, Urine Ketones Negative, Urine Blood Negative, Urine Nitrate Negative, Urine Bilirubin Negative, Urine Urobilinogen 0.2, Ur Leukocyte Esterase Negative, Urine RBC Negative, Urine WBC Negative 11/15/17 09:40: POC Glucose (mg/dL) 112 H 11/15/17 07:30: Influenza Typ A,B (EIA) Negative for flu a/b 11/15/17 07:30: Sodium 137, Potassium 3.9, Chloride 105, Carbon Dioxide 18 L, Anion Gap 17, BUN 42 H, Creatinine 1.9 H, Est GFR ( Amer) 42, Est GFR ( Non-Af Amer) 35, Random Glucose 95, Calcium 8.6, Phosphorus 4.9 H, Magnesium 2.2 , Total Bilirubin 0.4, AST 45, ALT 31, Alkaline Phosphatase 57, Total Protein 7.4, Albumin 4.2, Globulin 3.2, Albumin/Globulin Ratio 1.3 11/15/17 07:30: WBC 6.5, RBC 4.48, Hgb 14.2, Hct 42.3, MCV 94.4, MCH 31.7, MCHC 33.6, RDW 14.0, Plt Count 242, MPV 10.9, Gran % 72.4 H, Lymph % (Auto) 15.3 L, [place] % (Auto) 11.8 H, Eos % (Auto) 0.0 L, Baso % (Auto) 0.5, Gran # 4.72, Lymph # 1.0 L, [place] # 0.8 H, Eos # 0.0, Baso # 0.03 I have reviewed the lab results: Yes - RAD Interpretation Radiology Orders: 11/15/17 07:41 CHEST PORTABLE [RAD] Stat - Scribe Statement The provider has reviewed the documentation as recorded by the Sommer Mathews Provider Scribe Attestation: All medical record entries made by the Scribe were at my direction and personally dictated by me. I have reviewed the chart and agree that the record accurately reflects my personal performance of the history, physical exam, medical decision making, and the department course for this patient. I have also personally directed, reviewed, and agree with the discharge instructions and disposition. Disposition/Present on Arrival - Present on Arrival Any Indicators Present on Arrival: No History of DVT/PE: No History of Uncontrolled Diabetes: No Urinary Catheter: No History of Decub. Ulcer: No History Surgical Site Infection Following: None - Disposition Have Diagnosis and Disposition been Completed?: Yes Diagnosis: Hypoglycemia Disposition: HOME/ ROUTINE Disposition Time: 12:30 Patient Plan: Discharge Condition: IMPROVED Discharge Instructions (ExitCare): Diabetic Hypoglycemia (ED) Additional Instructions: Mr Hazel, thank you for letting us take care of you today. Your provider was Dr. Contreras. You were treated for Hypoglycemia. The emergency medical care you received today was directed at your acute symptoms. If you were prescribed any medication, please fill it and take as directed. It may take several days for your symptoms to resolve. Return to the Emergency Department if your symptoms worsen, do not improve, or if you have any other problems. Please contact your doctor or call one of the physicians/clinics you have been referred to that are listed on the Patient Visit Information form that is included in your discharge packet. Bring any paperwork you were given at discharge with you along with any medications you are taking to your follow up visit. Our treatment cannot replace ongoing medical care by a primary care provider (PCP) outside of the emergency department. Thank you for allowing the [facility] team to be part of your care today. If you had an X-Ray or CT scan: A Radiologist will review the ED reading if any change in treatment is needed we will contact you. If you had a blood, urine, or wound culture: It will take several days for the results, if any change in treatment is needed we will contact you. If you had an STI test: It will take 48 hours for the results. Please call after 1 week if you have not heard back. Referrals: Sally Mei MD [Family Provider] - Follow up with primary Forms: [employer]obubble (Chinese)
[2017-11-15 08:10] LABS: BASO # 0.03 K/mm3 (0.0-2.0); BASO % 0.5 % (0.0-3.0); GRAN # 4.72 (1.4-6.5); GRAN % 72.4 % (50.0-68.0); HEMOGLOBIN 14.2 g/dL (14.0-18.0); LYMPH % 15.3 % (22.0-35.0); MEAN CELL VOLUME 94.4 fl (80.0-105.0); MEAN CORPUSCULAR HEMOGLOBIN 31.7 pg (25.0-35.0); MEAN CORPUSCULAR HGB CONC 33.6 g/dl (31.0-37.0); MEAN PLATELET VOLUME 10.9 fl (7.0-11.0); MONO # 0.8 (0.1-0.6); MONO % 11.8 % (1.0-6.0); RBC 4.48 10^6/uL (3.5-6.1); WHITE BLOOD COUNT 6.5 10^3/ul (4.5-11.0)
[2017-11-15 08:41] LABS: ALB/GLOB RATIO 1.3 (1.1-1.8); ALBUMIN 4.2 g/dL (3.0-4.8); CALCIUM 8.6 mg/dL (8.4-10.5); MAGNESIUM 2.2 mg/dL (1.7-2.2)
--- NOTE | 2017-11-15 08:53 | RAD ---
HISTORY: Sepsis Patient COMPARISON: 01/24/2017 FINDINGS: LUNGS: No active pulmonary disease. PLEURA: No significant pleural effusion identified, no pneumothorax apparent. CARDIOVASCULAR: Normal. OSSEOUS STRUCTURES: No significant abnormalities. VISUALIZED UPPER ABDOMEN: Normal. OTHER FINDINGS: None. IMPRESSION: No active disease.
[2017-11-15 09:37] VITALS: RESP 18; TEMP 98.8
[2017-11-15 11:57] VITALS: BP 135/64; PULSE 69
[2017-11-15 11:57] LABS: URINE APPEARANCE CLEAR (CLEAR); URINE BILIRUBIN NEGATIVE (NEGATIVE); URINE BLOOD NEGATIVE (NEGATIVE); URINE COLOR YELLOW (YELLOW); URINE GLUCOSE (UA) NEGATIVE (NEGATIVE); URINE LEUKOCYTE ESTERASE NEGATIVE Leu/uL (NEGATIVE); URINE NITRATE NEGATIVE (NEGATIVE); URINE PROTEIN 30 mg/dL (<30 mg/dL); URINE UROBILINOGEN 0.2 E.U./dL (<1 E.U./dL)
[2017-11-15 12:05] LABS: URINE RBC NEGATIVE /hpf (0-2); URINE WBC NEGATIVE /hpf (0-6)
--- NOTE | 2017-11-15 13:46 | CARD ---
APPROVED REPORT EKG Measurement Heart [id number] <Conclusion> Normal sinus rhythm Left axis deviation, possible LAHB Right bundle branch block Inferior infarct, age undetermined STTW changes
== END 2017-11-15 12:51 | disposition home or self-care (01) ==
LOC: ED 07:06
DX: E11.649 Type 2 diabetes mellitus with hypoglycemia without coma (principal); I10 Essential (primary) hypertension; Z87.891 Personal history of nicotine dependence

== ENCOUNTER 2017-11-19 14:55 | Inpatient (IN) | payer MEDICARE ==
[2017-11-19] MEDS ORDERED: Sodium Chloride 0.9% 1,000 ML IV STA (16:05)
--- NOTE | 2017-11-19 16:05 | ED PDOC ---
Arrival/HPI - General Chief Complaint: Dizziness/Lightheaded Time Seen by Provider: 11/19/17 15:40 Historian: Patient - History of Present Illness Narrative History of Present Illness (Text): 11/19/17 16:02 72 year old male presents to the Emergency department complaining of loose dark/ bloody bowel movements and lightheadedness for a couple days. Patient denies any fever, chills, chest pain, shortness of breath, nausea, vomiting, dysuria, back pain, neck pain, headache or any other complaints. Time/Duration: < week Symptom Onset: Gradual Symptom Course: Unchanged Context: Home Past Medical History - Provider Review Nursing Documentation Reviewed: Yes - Infectious Disease Hx of Infectious Diseases: None - Tetanus Immunization Tetanus Immunization: Unknown - Cardiac Hx Cardiac Disorders: Yes Hx Hypertension: Yes - Pulmonary Hx Chronic Obstructive Pulmonary Disease (COPD): Yes - Neurological Hx Neurological Disorder: No - HEENT Hx HEENT Disorder: No - Renal Hx Renal Disorder: No - Endocrine/Metabolic Hx Diabetes Mellitus Type 2: Yes - Hematological/Oncological Hx Blood Transfusions: No - Integumentary Hx Dermatological Disorder: Yes - Musculoskeletal/Rheumatological Hx Musculoskeletal Disorders: Yes Hx Falls: Yes - Gastrointestinal Hx Gastrointestinal Disorders: No - Genitourinary/Gynecological Hx Genitourinary Disorders: No - Psychiatric Hx Psychophysiologic Disorder: No Hx Substance Use: No - Surgical History Hx Orthopedic Surgery: Yes (R KNEE R/T INFECTION) - Anesthesia Hx Anesthesia Reactions: No Hx Malignant Hyperthermia: No Family/Social History - Physician Review Nursing Documentation Reviewed: Yes Family/Social History: Unknown Family HX Smoking Status: Former Smoker Hx Alcohol Use: No Hx Substance Use: No Allergies/Home Meds Allergies/Adverse Reactions: Allergies ropinirole HCl [From Requip] Allergy (Severe, Verified 11/19/17 15:08) ANGIOEDEMA swollen tongue Home Medications: Home Meds Medication Instructions Recorded Confirmed Enalapril Maleate [Vasotec] 20 mg PO DAILY 08/20/16 11/19/17 GlipiZIDE SR [Glucotrol XL] 10 mg PO DAILY 08/20/16 11/19/17 Spironolactone [Aldactone] 25 mg PO DAILY 08/20/16 11/19/17 amLODIPine [Norvasc] 10 mg PO DAILY 08/20/16 11/19/17 Fluticasone Propionate [Flovent 50 mcg INH DAILY 11/15/17 11/19/17 Diskus] Montelukast Sodium [Singulair] 10 mg PO DAILY 11/15/17 11/19/17 Review of Systems - Physician Review All systems were reviewed & negative as marked: Yes - Review of Systems Constitutional: Normal Eyes: Normal ENT: Normal Respiratory: Normal Cardiovascular: Normal Gastrointestinal: Stool Changes (dark/bloody), Diarrhea Genitourinary Male: Normal Musculoskeletal: Normal Skin: Normal Neurological: Dizziness (lightheadedness) Endocrine: Normal Hemo/Lymphatic: Normal Psychiatric: Normal Physical Exam Vital Signs Reviewed: Yes Vital Signs Temp Pulse Resp BP Pulse Ox 11/19/17 15:44 68 18 118/62 98 11/19/17 15:17 98.5 F 71 16 91/46 L 96 Temperature: Afebrile Blood Pressure: Hypotensive Pulse: Regular Respiratory Rate: Normal Appearance: Positive for: Well-Appearing, Non-Toxic, Comfortable Pain Distress: None Mental Status: Positive for: Alert and Oriented X 3 - Systems Exam Head: Present: Atraumatic, Normocephalic Pupils: Present: PERRL Extroacular Muscles: Present: EOMI Conjunctiva: Present: Normal Mouth: Present: Moist Mucous Membranes Neck: Present: Normal Range of Motion Respiratory/Chest: Present: Clear to Auscultation, Good Air Exchange. No: Respiratory Distress, Accessory Muscle Use Cardiovascular: Present: Regular Rate and Rhythm, Normal S1, S2. No: Murmurs Abdomen: Present: Normal Bowel Sounds. No: Tenderness, Distention, Peritoneal Signs Rectal: Present: Other (dark black stool markings, guaiac positive) Back: Present: Normal Inspection Upper Extremity: Present: Normal Inspection. No: Cyanosis, Edema Lower Extremity: Present: Normal Inspection. No: Edema Neurological: Present: GCS=15, CN II-XII Intact, Speech Normal Skin: Present: Warm, Dry, Normal Color. No: Rashes Psychiatric: Present: Alert, Oriented x 3, Normal Insight, Normal Concentration Medical Decision Making ED Course and Treatment: 11/19/17 16:07 You were treated in the ED today for dark/bloody bowel movements and lightheadedness otherwise without any nausea/vomiting/headache/difficulty breathing/chest pain/abdomen pain/numbness/tingling/loss of limb function/pain with urination. You were otherwise breathing easily, smiling and laughing, good strength/sensation, walking easily, clear lungs, no abdomen tenderness, mild dark stool lópez near anal area but no active bleeding, no fever temp 98.5, stable heart rate 71, stable breathing rate 16, stable oxygen level 96% room air , low blood pressure 91/46 which we recommend repeat in 2-3 days primary care office to determine further treatment, hb 9 which is decreased from 14. Plan: -- EKG -- Urine culture -- Urinalysis -- Labs -- Pantoprazole, Sodium chloride IV fluids -- Reassess and disposition 11/19/17 16:39 11/19/17 17:41 11/19/17 17:43 11/19/17 17:45 11/19/17 18:01 d/w Dr. Mei who stated admit to med-surger, consult gi Dr. Fox. - Lab Interpretations Lab Results: 11/19/17 15:35 11/19/17 15:35 Lab Results 11/19/17 17:20: Urine Color Yellow, Urine Appearance Clear, Urine pH 6.0, Ur Specific [place] 1.010, Urine Protein Negative, Urine Glucose (UA) Negative, Urine Ketones Negative, Urine Blood Negative, Urine Nitrate Negative, Urine Bilirubin Negative, Urine Urobilinogen 0.2, Ur Leukocyte Esterase Negative 11/19/17 15:35: PT 12.9 H, INR 1.13 H, APTT 29.4 11/19/17 15:35: Sodium 137, Potassium 4.6, Chloride 108 H, Carbon Dioxide 17 L, Anion Gap 17, BUN 56 H, Creatinine 1.6 H, Est GFR ( Amer) 52, Est GFR ( Non-Af Amer) 43, Random Glucose 199 H, Calcium 8.9, Magnesium 2.0, Total Bilirubin 0.2, AST 22, ALT 29, Alkaline Phosphatase 55, Lactate Dehydrogenase 335, Total Creatine Kinase 44, Troponin I < 0.01, Total Protein 6.3, Albumin 3.4 , Globulin 3.0, Albumin/Globulin Ratio 1.1 11/19/17 15:35: WBC 6.7, RBC 2.97 L, Hgb 9.2 L D, Hct 28.0 L, MCV 94.3, MCH 31.0 , MCHC 32.9, RDW 13.8, Plt Count 290, MPV 11.5 H, Gran % 59.2, Lymph % (Auto) 24.5, [place] % (Auto) 9.3 H, Eos % (Auto) 6.7 H, Baso % (Auto) 0.3, Gran # 3.99, Lymph # 1.7, [place] # 0.6, Eos # 0.5, Baso # 0.02 I have reviewed the lab results: Yes - EKG Interpretation Interpreted by ED Physician: Yes (NSR, flipped t waves avr, v1, avl, RBBB ) Type: 12 lead EKG Comparison: Similar to previous EKG (11/15/17) - Medication Orders Current Medication Orders: Discontinued Medications Sodium Chloride (Sodium Chloride 0.9%) 1,000 mls @ 999 mls/hr IV .Q1H1M STA Stop: 11/19/17 17:05 Last Admin: 11/19/17 16:32 Dose: 999 mls/hr eMAR Start Stop Document 11/19/17 16:32 SF (Rec: 11/19/17 16:32 [email or web address]) Intravenous Solution Start Date 11/19/17 Start Time 16:32 End Date 11/19/17 End time 17:33 Total Infusion Time 61 Pantoprazole Sodium (Protonix Inj) 80 mg IVP STAT STA Stop: 11/19/17 16:07 Last Admin: 11/19/17 16:33 Dose: 80 mg IVP Administration Document 11/19/17 16:33 SF (Rec: 11/19/17 16:33 SF [email or web address]) Charges for Administration # of IVP Administrations 1 - Scribe Statement The provider has reviewed the documentation as recorded by the Sommer Ojeda Provider Scribe Attestation: All medical record entries made by the Scribchas were at my direction and personally dictated by me. I have reviewed the chart and agree that the record accurately reflects my personal performance of the history, physical exam, medical decision making, and the department course for this patient. I have also personally directed, reviewed, and agree with the discharge instructions and disposition. Disposition/Present on Arrival - Present on Arrival Any Indicators Present on Arrival: No History of DVT/PE: No History of Uncontrolled Diabetes: Yes Urinary Catheter: No History of Decub. Ulcer: No History Surgical Site Infection Following: None - Disposition Have Diagnosis and Disposition been Completed?: Yes Diagnosis: GIB (gastrointestinal bleeding), Anemia Disposition: HOSPITALIZED Disposition Time: 18:02 Patient Plan: Admission Condition: STABLE Referrals: Charbel Mei [Primary Care Provider] - Follow up with primary Forms: [employer] (FIG) (Iraqi)
[2017-11-19 16:28] LABS: INR 1.13 (0.93-1.08); PARTIAL THROMBOPLASTIN TIME 29.4 Seconds (25.1-36.5); PROTHROMBIN TIME 12.9 SECONDS (9.4-12.5)
[2017-11-19 16:45] LABS: ALB/GLOB RATIO 1.1 (1.1-1.8); ALBUMIN 3.4 g/dL (3.0-4.8); ALT/SGPT 29 U/L (7-56); AST/SGOT 22 U/L (17-59); BLOOD UREA NITROGEN 56 mg/dL (7-21); CALCIUM 8.9 mg/dL (8.4-10.5); GFR AFRICAN-AMERICAN 52; GFR NON-AFRICAN AMERICAN 43
[2017-11-19 16:49] LABS: TROPONIN I < 0.01 ng/mL
[2017-11-19 17:33] LABS: URINE BILIRUBIN NEGATIVE (NEGATIVE); URINE BLOOD NEGATIVE (NEGATIVE); URINE GLUCOSE (UA) NEGATIVE (NEGATIVE); URINE LEUKOCYTE ESTERASE NEGATIVE Leu/uL (NEGATIVE); URINE NITRATE NEGATIVE (NEGATIVE); URINE PROTEIN NEGATIVE mg/dL (<30 mg/dL); URINE UROBILINOGEN 0.2 E.U./dL (<1 E.U./dL)
[2017-11-19 17:41] LABS: URINE APPEARANCE CLEAR (CLEAR); URINE COLOR YELLOW (YELLOW)
[2017-11-19 17:45] LABS: BASO # 0.02 K/mm3 (0.0-2.0); BASO % 0.3 % (0.0-3.0); EOS # 0.5 (0.0-0.7); EOS % 6.7 % (1.5-5.0); GRAN # 3.99 (1.4-6.5); GRAN % 59.2 % (50.0-68.0); HEMOGLOBIN 9.2 g/dL (14.0-18.0); LYMPH # 1.7 (1.2-3.4); LYMPH % 24.5 % (22.0-35.0); MEAN CELL VOLUME 94.3 fl (80.0-105.0); MEAN CORPUSCULAR HGB CONC 32.9 g/dl (31.0-37.0); MEAN PLATELET VOLUME 11.5 fl (7.0-11.0); MONO # 0.6 (0.1-0.6); MONO % 9.3 % (1.0-6.0); RBC 2.97 10^6/uL (3.5-6.1); RED CELL DISTRIBUTION WIDTH 13.8 % (11.5-14.5); WHITE BLOOD COUNT 6.7 10^3/ul (4.5-11.0)
[2017-11-19 20:56] VITALS: BMI 37.5
[2017-11-19 21:06] LABS: BASO # 0.07 K/mm3 (0.0-2.0); BASO % 0.9 % (0.0-3.0); EOS # 0.6 (0.0-0.7); EOS % 7.6 % (1.5-5.0); GRAN # 3.95 (1.4-6.5); GRAN % 51.9 % (50.0-68.0); HEMOGLOBIN 9.4 g/dL (14.0-18.0); LYMPH # 2.4 (1.2-3.4); LYMPH % 30.8 % (22.0-35.0); MEAN CORPUSCULAR HEMOGLOBIN 31.2 pg (25.0-35.0); MEAN CORPUSCULAR HGB CONC 33.2 g/dl (31.0-37.0); MEAN PLATELET VOLUME 10.5 fl (7.0-11.0); MONO # 0.7 (0.1-0.6); MONO % 8.8 % (1.0-6.0); RBC 3.01 10^6/uL (3.5-6.1); RED CELL DISTRIBUTION WIDTH 13.7 % (11.5-14.5); WHITE BLOOD COUNT 7.6 10^3/ul (4.5-11.0)
[2017-11-19] MEDS: Pantoprazole 40mg/100ml IVPB 40 MG/100 ML BAG IVPB SCH (21:32)
[2017-11-19] MEDS ORDERED: Sodium Chloride 0.9% 1,000 ML IV SCH (22:30)
[2017-11-20] MEDS: Pantoprazole 40mg/100ml IVPB 40 MG/100 ML BAG IVPB SCH ×2 (02:21→05:26)
--- NOTE | 2017-11-20 07:05 | CP.PCM.CON ---
<Manan Parker - Last Filed: 11/20/17 10:32> History of Present Illness - History of Present Illness History of Present Illness: GI Consult Note: 72 year old male with PMH of HTN, DM, COPD, REY, neuropathy presents to the ED complaining of bloody bowel movements. Patient states that he first noticed having bloody bowel movements 1 week ago and though that it would go away but it got progressively worse. He describes it as dark stool with occasional bright red blood as well. He states that he also has been having multiple bouts of diarrhea in the past week which he took Imodium for. Pt states that in the past few days he has also been feeling very weak and lightheaded. Patient denies any fever, chills, chest pain, shortness of breath, nausea, vomiting, dysuria, back pain, neck pain, headache or any other complaints. GI consulted for darkstools and Anemia with Hb of 9.2 on admission. 12 Point ROS performed and negative other than stated above. PMHx: DM2, HTN, REY, COPD, neuropathy Meds: Duoneb, Norvasc, Lasix, Hydralazine, ISS, Dilaudid, lisinopril, Metoprolol , Protonix, Lovenox Allergies: requip - angioadema PHSx: spine SHx: ; 1ppd x50yrs; denies EtOH, drugs FHx: non-contributory Endo Hx: Never had EGD or colonoscopy Review of Systems - Review of Systems All systems: reviewed and no additional remarkable complaints except Past Patient History - Infectious Disease Hx of Infectious Diseases: None - Tetanus Immunizations Tetanus Immunization: Unknown - Past Medical History & Family History Past Medical History?: Yes - Past Social History Smoking Status: Heavy Smoker > 10 Cigarettes Daily - CARDIAC Hx Cardiac Disorders: Yes Hx Hypertension: Yes - PULMONARY Hx Chronic Obstructive Pulmonary Disease (COPD): Yes - NEUROLOGICAL Hx Neurological Disorder: No - HEENT Hx HEENT Problems: No - RENAL Hx Chronic Kidney Disease: No - ENDOCRINE/METABOLIC Hx Diabetes Mellitus Type 2: Yes - HEMATOLOGICAL/ONCOLOGICAL Hx Blood Disorders: No - INTEGUMENTARY Hx Dermatological Problems: Yes - MUSCULOSKELETAL/RHEUMATOLOGICAL Hx Falls: Yes - GASTROINTESTINAL Hx Gastrointestinal Disorders: No - GENITOURINARY/GYNECOLOGICAL Hx Genitourinary Disorders: No - PSYCHIATRIC Hx Psychophysiologic Disorder: No - SURGICAL HISTORY Hx Orthopedic Surgery: Yes (R KNEE R/T INFECTION) - ANESTHESIA Hx Anesthesia Reactions: No Hx Malignant Hyperthermia: No Meds Allergies/Adverse Reactions: Allergies Allergy/AdvReac Type Severity Reaction Status Date / Time ropinirole HCl [From Requip] Allergy Severe ANGIOEDEMA Verified 11/19/17 15:08 - Medications Medications: Current Medications Budesonide (Pulmicort Respules) 0.5 mg IH [id number] [facility] Gemfibrozil (Lopid) 600 mg PO BID [facility] Glipizide (Glucotrol Xl) 10 mg PO DAILY [facility] Pantoprazole Sodium (Protonix 40mg Ivpb) 40 mg in 100 mls @ 20 mls/hr IVPB .Q5H [facility] Last Admin: 11/20/17 05:26 Dose: 20 mls/hr Sodium Chloride (Sodium Chloride 0.9%) 1,000 mls @ 100 mls/hr IV .Q10H [facility] Insulin Human Regular (Humulin R Low) 0 units SC ACHS [facility] PRN Reason: Protocol Montelukast Sodium (Singulair) 10 mg PO DAILY [facility] Physical Exam - Constitutional Appears: No Acute Distress - Head Exam Head Exam: ATRAUMATIC, NORMOCEPHALIC - Eye Exam Eye Exam: EOMI - ENT Exam ENT Exam: Mucous Membranes Moist - Respiratory Exam Respiratory Exam: Clear to Auscultation Bilateral. absent: Wheezes - Cardiovascular Exam Cardiovascular Exam: REGULAR RHYTHM, RRR, +S1, +S2 - GI/Abdominal Exam GI & Abdominal Exam: Normal Bowel Sounds, Soft. absent: Tenderness - Rectal Exam Additional comments: patient refused exam. - Extremities Exam Extremities exam: Negative for: calf tenderness, pedal edema - Neurological Exam Neurological exam: Alert, Oriented x3 - Psychiatric Exam Psychiatric exam: Normal Affect, Normal Mood - Skin Skin Exam: Dry, Intact, Warm Results - Vital Signs Recent Vital Signs: Last Vital Signs Temp 98.1 F 11/19/17 20:44 Pulse 73 11/19/17 20:52 Resp 18 11/19/17 20:52 BP 139/75 11/19/17 20:52 Pulse Ox 98 11/19/17 18:43 - Labs Result Diagrams: 11/20/17 07:30 11/20/17 07:30 Labs: Laboratory Results - last 24 hr 11/19/17 11/19/17 21:00 21:32 WBC 7.6 RBC 3.01 L Hgb 9.4 L Hct 28.3 L MCV 94.0 MCH 31.2 MCHC 33.2 RDW 13.7 Plt Count 284 MPV 10.5 Gran % 51.9 Lymph % (Auto) 30.8 Fleming % (Auto) 8.8 H Eos % (Auto) 7.6 H Baso % (Auto) 0.9 Gran # 3.95 Lymph # 2.4 Fleming # 0.7 H Eos # 0.6 Baso # 0.07 POC Glucose (mg/dL) 88 Assessment & Plan - Assessment and Plan (Free Text) Assessment: 72 year old male with PMH of HTN, DM, COPD, REY, neuropathy presents to the Emergency department complaining of loose dark/bloody bowel movements and lightheadedness x 1 week - presents with UGI bleed. S/p EGD POD 0. UGI bleed s/p EGD post op day 0 DM COPD HTN - Endoscopy performed revealed multiple duodenal ulcers, gastritis, and hiatal hernia - D/dianna protonix drip and started Protonix 40mg PO BID - Started Carafate 1gm BID - CLD - advance as tolerated - Monitor H/H - Avoid NSAIDS use - Patient recommended to follow up as an outpatient for colonoscopy Case and plan was reviewed and discussed in detail with Dr Dang. <Elver Dang - Last Filed: 11/20/17 16:22> Meds - Medications Medications: Current Medications Budesonide (Pulmicort Respules) 0.5 mg IH [id number] [facility] Last Admin: 11/20/17 08:04 Dose: 0.5 mg Gemfibrozil (Lopid) 600 mg PO BID [facility] Last Admin: 11/20/17 09:21 Dose: Not Given Glipizide (Glucotrol Xl) 10 mg PO DAILY [facility] Last Admin: 11/20/17 13:03 Dose: Not Given Sodium Chloride (Sodium Chloride 0.9%) 1,000 mls @ 100 mls/hr IV .Q10H [facility] Insulin Human Regular (Humulin R Low) 0 units SC ACHS [facility] PRN Reason: Protocol Last Admin: 11/20/17 13:04 Dose: Not Given Montelukast Sodium (Singulair) 10 mg PO DAILY [facility] Last Admin: 11/20/17 09:22 Dose: Not Given Pantoprazole Sodium (Protonix Ec Tab) 40 mg PO 0600,1600 [facility] Sucralfate (Carafate Oral Susp) 1 gm PO 0600,1600 [facility] Results - Vital Signs Recent Vital Signs: Last Vital Signs Temp 98.2 F 11/20/17 11:16 Pulse 62 11/20/17 11:16 Resp 12 11/20/17 11:16 BP 133/62 11/20/17 11:16 Pulse Ox 99 11/20/17 11:16 - Labs Result Diagrams: 11/20/17 07:30 11/20/17 07:30 Labs: Laboratory Results - last 24 hr 11/19/17 11/19/17 11/20/17 21:00 21:32 07:30 WBC 7.6 RBC 3.01 L Hgb 9.4 L Hct 28.3 L MCV 94.0 MCH 31.2 MCHC 33.2 RDW 13.7 Plt Count 284 MPV 10.5 Gran % 51.9 Lymph % (Auto) 30.8 Fleming % (Auto) 8.8 H Eos % (Auto) 7.6 H Baso % (Auto) 0.9 Gran # 3.95 Lymph # 2.4 Fleming # 0.7 H Eos # 0.6 Baso # 0.07 Sodium 143 Potassium 4.4 Chloride 112 H Carbon Dioxide 19 L Anion Gap 16 BUN 46 H Creatinine 1.7 H Est GFR ( Amer) 48 Est GFR (Non-Af Amer) 40 POC Glucose (mg/dL) 88 Random Glucose 71 Hemoglobin A1c Calcium 8.8 Iron TIBC % Saturation Total Bilirubin 0.5 AST 23 ALT 29 Alkaline Phosphatase 54 Total Protein 6.3 Albumin 3.3 Globulin 3.0 Albumin/Globulin Ratio 1.1 Triglycerides 87 Cholesterol 83 L LDL Cholesterol Direct 48 HDL Cholesterol 25 L Vitamin B12 562 Folate 14.1 TSH 3rd Generation 11/20/17 11/20/17 11/20/17 07:30 07:30 07:30 WBC 5.6 D RBC 2.95 L Hgb 9.1 L Hct 27.8 L MCV 94.2 MCH 30.8 MCHC 32.7 RDW 13.7 Plt Count 298 MPV 10.5 Gran % 49.7 L Lymph % (Auto) 32.3 Fleming % (Auto) 8.9 H Eos % (Auto) 8.6 H Baso % (Auto) 0.5 Gran # 2.78 Lymph # 1.8 Fleming # 0.5 Eos # 0.5 Baso # 0.03 Sodium Potassium Chloride Carbon Dioxide Anion Gap BUN Creatinine Est GFR ( Amer) Est GFR (Non-Af Amer) POC Glucose (mg/dL) Random Glucose Hemoglobin A1c 6.7 H Calcium Iron 68 TIBC 278 % Saturation 25 Total Bilirubin AST ALT Alkaline Phosphatase Total Protein Albumin Globulin Albumin/Globulin Ratio Triglycerides Cholesterol LDL Cholesterol Direct HDL Cholesterol Vitamin B12 Folate TSH 3rd Generation 11/20/17 11/20/17 11/20/17 07:30 07:47 12:04 WBC RBC Hgb Hct MCV MCH MCHC RDW Plt Count MPV Gran % Lymph % (Auto) Fleming % (Auto) Eos % (Auto) Baso % (Auto) Gran # Lymph # Fleming # Eos # Baso # Sodium Potassium Chloride Carbon Dioxide Anion Gap BUN Creatinine Est GFR ( Amer) Est GFR (Non-Af Amer) POC Glucose (mg/dL) 74 80 Random Glucose Hemoglobin A1c Calcium Iron TIBC % Saturation Total Bilirubin AST ALT Alkaline Phosphatase Total Protein Albumin Globulin Albumin/Globulin Ratio Triglycerides Cholesterol LDL Cholesterol Direct HDL Cholesterol Vitamin B12 Folate TSH 3rd Generation 1.03 Attending/Attestation - Attestation I have personally seen and examined this patient.: Yes I have fully participated in the care of the patient.: Yes I have reviewed all pertinent clinical information: Yes Notes (Text): 11/20/17 16:17 I have seen and examined patient with GI fellow and medical assembly. Agree with above documentation with the following additions. In brief, this is a 72 year old male with history of DM, HTN, COPD who presented to hospital with complaint of rectal bleeding for the past one week. He describes intermittent melena mixed with bright red blood associated with dizziness and lightheadedness. He denies nausea, vomiting, fever/chills, weight loss, or NSAID use. No prior endoscopic evaluation. Family history: reviewed, patient denies history of GI malignancies Additional physical exam: Abdomen: no palpable hepato/splenomegaly DM/HTN COPD Anemia Melena - NPO - Continue with PPI therapy - H/H stable, patient has not required PRBC transfusion therapy, continue to monitor - Plan for EGD given symptomatic anemia with presence of melena, rule out peptic ulcer disease or associated mass lesion - Patient would also benefit from elective colonoscopy evaluation, timing to be determined following upper GI endoscopic exam. Will continue to monitor patient clinical course.
--- NOTE | 2017-11-20 07:15 | HP ---
CHIEF COMPLAINT: Dizziness and lightheadedness. HISTORY OF PRESENT ILLNESS: Mr. Maverick Hazel is a 72-year-old my private patient with history of multiple medical problems came to Emergency Room with diarrhea with blood, with lightheadedness, shortness of breath from couple of days. The patient denies any fever, chills, chest pain, nausea, vomiting, dysuria, back pain, neck pain, headache or any other complaints. Actually, Mr. Maverick Hazel is my private patient, almost 17 years, I was working on him to convince go for colonoscopy, he and his were always refusing. Now, we did stool occult test, it came stool guaiac positive. 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 Then, he came other day into the Emergency Room with lower GI bleeding. The patient was stable, went home, now he came back with more black and red bleeding with symptomatic movements with drop in hemoglobin. PAST MEDICAL HISTORY: Hypotension, COPD, obesity, diabetes mellitus type 2, dermatological disorder, fall, orthopedic surgery, right knee and right leg. FAMILY HISTORY: Father and mother noncontributory. HABITS: Still smoking for long time, heavy smoker. Alcohol, no. Substance abuse, no. ALLERGIES: THE PATIENT IS ALLERGIC WITH REQUIP, GIVING ANGIOEDEMA AND SWOLLEN TONGUE. MEDICATIONS: Vasotec, glipizide, Aldactone, amlodipine, Flovent and Singulair. REVIEW OF SYSTEMS: The patient is seen and examined on the bedside in the Emergency Room, looking comfortable having shortness of breath. Stool is like dark and blood with diarrhea. Having dizziness, lightheadedness. No fever. No chills. No hematuria. No swelling of the leg. PHYSICAL EXAMINATION: VITAL SIGNS: Temperature 98.5, pulse 71, respiratory rate 16, blood pressure 91/46 and oxygenation 96. HEENT: Head normocephalic and atraumatic. Eyes: PERRLA. Extraocular muscles are intact. Conjunctivae clear. Nose, patent. Mucous membrane moist. NECK: Supple. No carotid bruit. No JVD or thyromegaly. CHEST: Bilaterally symmetrical. HEART: S1 and S2 positive. LUNGS: Clear to auscultation. ABDOMEN: Soft. Bowel sounds present. No organomegaly. EXTREMITIES: No edema. No cyanosis. NEUROLOGIC: The patient is awake and alert. Moving all 4 extremities. No focal deficit. LABORATORY DATA: White count cell 6.7, hemoglobin 9.2, hematocrit 28.0 and platelets of 90. Sodium 137, potassium 4.6, BUN 56, creatinine 1.6 and glucose 199. ASSESSMENT AND PLAN: Mr. Maverick Hazel is a 72-year-old male with anemia, renal insufficiency, hyperglycemia. The patient's hemoglobin on last admission almost 40 and now it has significantly drop. Hypochloremia, renal insufficiency, hyperglycemia. The patient came with symptomatic anemia, lower gastrointestinal bleeding. Dr. Nam Fox is a consult call. History of hypertension. Now, he has hypotension, chronic obstructive pulmonary disease, obesity, obstructive sleep apnea syndrome, history of fall, history of right knee and leg injury status post surgery, history of heavy smoking, noncompliant. We admitted the patient. We will follow up with hemoglobin and hematocrit. Gastrointestinal and deep venous thrombosis prophylaxis. Repeat labs. We will follow up. Sally Mei MD MTDEbenezer
[2017-11-20 07:46] LABS: BASO # 0.03 K/mm3 (0.0-2.0); BASO % 0.5 % (0.0-3.0); EOS # 0.5 (0.0-0.7); EOS % 8.6 % (1.5-5.0); GRAN # 2.78 (1.4-6.5); GRAN % 49.7 % (50.0-68.0); HEMOGLOBIN 9.1 g/dL (14.0-18.0); LYMPH # 1.8 (1.2-3.4); LYMPH % 32.3 % (22.0-35.0); MEAN CELL VOLUME 94.2 fl (80.0-105.0); MEAN CORPUSCULAR HEMOGLOBIN 30.8 pg (25.0-35.0); MEAN CORPUSCULAR HGB CONC 32.7 g/dl (31.0-37.0); MEAN PLATELET VOLUME 10.5 fl (7.0-11.0); MONO # 0.5 (0.1-0.6); MONO % 8.9 % (1.0-6.0); RBC 2.95 10^6/uL (3.5-6.1); RED CELL DISTRIBUTION WIDTH 13.7 % (11.5-14.5); WHITE BLOOD COUNT 5.6 10^3/ul (4.5-11.0)
[2017-11-20 07:58] LABS: IRON 68 ug/dL (45-180)
[2017-11-20 08:01] LABS: ALB/GLOB RATIO 1.1 (1.1-1.8); ALBUMIN 3.3 g/dL (3.0-4.8); CALCIUM 8.8 mg/dL (8.4-10.5)
[2017-11-20] MEDS: Budesonide 0.5 mg/2 ml Inhal Susp UD IH SCH ×2 (08:04→21:10)
[2017-11-20 08:08] LABS: % IRON SATURATION 25 % (20-55); TOTAL IRON BINDING CAPACITY 278 ug/dL (261-462)
[2017-11-20] MEDS: Insulin Reg-LOW-Coverage SC SCH ×4 (09:21→21:42)
--- NOTE | 2017-11-20 09:28 | CARD ---
APPROVED REPORT EKG Measurement Heart [id number] <Conclusion> Normal sinus rhythm with sinus arrhythmia Right bundle branch block No change except LAHB no longer present
[2017-11-20] MEDS ORDERED: Etomidate 40 MG/20 ML ML IV ONE (10:05)
[2017-11-20] MEDS ORDERED: Lidocaine 1% Inj (20ml) ONE (10:05)
[2017-11-20] MEDS ORDERED: Propofol 10 mg/ml Inj (20 ML) ONE (10:06)
[2017-11-20] MEDS ORDERED: ePHEDrine 50 mg/ml Inj ONE (10:26)
[2017-11-20] MEDS ORDERED: Sodium Chloride 0.9% 1,000 ML IV SCH (10:45)
[2017-11-20 12:00] LABS: FOLATE 14.1 ng/mL
--- NOTE | 2017-11-20 12:33 | CP.PCM.PN ---
<Nayana Ruiz - Last Filed: 11/20/17 16:50> Subjective - Date & Time of Evaluation Date of Evaluation: 11/20/17 Time of Evaluation: 11:45 - Subjective Subjective: 72 yr male resident w/ history of HTN, COPD, obesity, DM II, falls, orthopedic surgery R knee, R leg, COPD, & REY. Pt being evaluated for GI bleed. Pt just returned from endoscopy. Pt reprts feeling "tired" & "hungry." Denies headaches, n/v, chills, diarrhea, constipation, or urinary changes. No distress noted. Objective - Vital Signs/Intake and Output Vital Signs (last 24 hours): Temp Pulse Resp BP Pulse Ox 98.2 F 62 12 133/62 99 11/20/17 11:16 11/20/17 11:16 11/20/17 11:16 11/20/17 11:16 11/20/17 11:16 Intake and Output: 11/20/17 11/20/17 06:59 18:59 Intake Total 0 Output Total 500 Balance -500 - Medications Medications: Current Medications Budesonide (Pulmicort Respules) 0.5 mg IH [id number] [facility] Last Admin: 11/20/17 08:04 Dose: 0.5 mg Gemfibrozil (Lopid) 600 mg PO BID [facility] Last Admin: 11/20/17 09:21 Dose: Not Given Glipizide (Glucotrol Xl) 10 mg PO DAILY [facility] Sodium Chloride (Sodium Chloride 0.9%) 1,000 mls @ 100 mls/hr IV .Q10H [facility] Insulin Human Regular (Humulin R Low) 0 units SC ACHS [facility] PRN Reason: Protocol Last Admin: 11/20/17 09:21 Dose: Not Given Montelukast Sodium (Singulair) 10 mg PO DAILY [facility] Last Admin: 11/20/17 09:22 Dose: Not Given Pantoprazole Sodium (Protonix Ec Tab) 40 mg PO 0600,1600 [facility] Sucralfate (Carafate Oral Susp) 1 gm PO 0600,1600 [facility] - Labs Labs: 11/20/17 07:30 11/20/17 07:30 PT 12.9 SECONDS (9.4-12.5) H 11/19/17 15:35 INR 1.13 (0.93-1.08) H 11/19/17 15:35 APTT 29.4 Seconds (25.1-36.5) 11/19/17 15:35 - Constitutional Appears: Well - Head Exam Head Exam: ATRAUMATIC, NORMAL INSPECTION, NORMOCEPHALIC - Eye Exam Eye Exam: EOMI, Normal appearance, PERRL Pupil Exam: NORMAL ACCOMODATION, PERRL - ENT Exam ENT Exam: Mucous Membranes Moist, Normal Exam - Neck Exam Neck Exam: Full ROM, Normal Inspection. absent: Lymphadenopathy - Respiratory Exam Respiratory Exam: Clear to Ausculation Bilateral, NORMAL BREATHING PATTERN - Cardiovascular Exam Cardiovascular Exam: REGULAR RHYTHM, +S1, +S2. absent: Murmur - GI/Abdominal Exam GI & Abdominal Exam: Soft, Normal Bowel Sounds. absent: Tenderness - Back Exam Back Exam: NORMAL INSPECTION - Neurological Exam Neurological Exam: Abnormal Gait, Alert, Awake, Oriented x3 - Psychiatric Exam Psychiatric exam: Normal Affect, Normal Mood - Skin Skin Exam: Dry, Intact, Normal Color, Warm Assessment and Plan (1) Renal insufficiency Status: Acute (2) Anemia Status: Acute (3) GIB (gastrointestinal bleeding) Status: Acute (4) Fall Status: Acute - Assessment and Plan (Free Text) Plan: PO Carafate on board. OT/PT onboard. GI/VTE prophylaxis Consults: GI - Dr. Dang = outpt colonscopy, enoscopy revealed multiple duodenal ulcers gastritis, hiatal hernia Pulmo - Dr. Caraballo = Reviewed: ECG = NSR w/ SA, R BBB <Sally Mei - Last Filed: 11/20/17 20:44> Objective - Vital Signs/Intake and Output Vital Signs (last 24 hours): Temp Pulse Resp BP Pulse Ox 98.2 F 62 12 133/62 99 11/20/17 11:16 11/20/17 11:16 11/20/17 11:16 11/20/17 11:16 11/20/17 11:16 Intake and Output: 11/20/17 11/21/17 18:59 06:59 Intake Total 0 Output Total 500 Balance -500 - Medications Medications: Current Medications Budesonide (Pulmicort Respules) 0.5 mg IH [id number] [facility] Last Admin: 11/20/17 08:04 Dose: 0.5 mg Gemfibrozil (Lopid) 600 mg PO BID [facility] Last Admin: 11/20/17 17:21 Dose: 600 mg Glipizide (Glucotrol Xl) 10 mg PO DAILY [facility] Last Admin: 11/20/17 13:03 Dose: Not Given Sodium Chloride (Sodium Chloride 0.9%) 1,000 mls @ 100 mls/hr IV .Q10H [facility] Last Admin: 11/20/17 17:17 Dose: 100 mls/hr Insulin Human Regular (Humulin R Low) 0 units SC ACHS [facility] PRN Reason: Protocol Last Admin: 11/20/17 17:17 Dose: Not Given Montelukast Sodium (Singulair) 10 mg PO DAILY [facility] Last Admin: 11/20/17 09:22 Dose: Not Given Pantoprazole Sodium (Protonix Ec Tab) 40 mg PO 0600,1600 [facility] Last Admin: 11/20/17 17:21 Dose: 40 mg Sucralfate (Carafate Oral Susp) 1 gm PO 0600,1600 [facility] Last Admin: 11/20/17 17:21 Dose: 1 gm - Labs Labs: 11/20/17 07:30 11/20/17 07:30 PT 12.9 SECONDS (9.4-12.5) H 11/19/17 15:35 INR 1.13 (0.93-1.08) H 11/19/17 15:35 APTT 29.4 Seconds (25.1-36.5) 11/19/17 15:35 Assessment and Plan - Assessment and Plan (Free Text) Plan: 72 yr male resident w/ history of HTN, COPD, obesity, DM II, falls, orthopedic surgery R knee, R leg, COPD, & REY. Pt being evaluated for GI bleed. Pt just returned from endoscopy. Pt reprts feeling "tired" & "hungry." Denies headaches, n/v, chills, diarrhea, constipation, or urinary changes. No distress noted. agreed all above . pt went for endo , had gastritis and dudenits will moniter h /h
[2017-11-20] MEDS: GlipiZIDE 10 mg SR Tab PO SCH (13:03)
[2017-11-20] MEDS: Sucralfate 1 gm/10 ml Oral Susp UD PO SCH (17:21)
[2017-11-20] MEDS: Pantoprazole 40 mg EC Tab PO SCH (17:21)
[2017-11-20 20:53] VITALS: RESP 18
[2017-11-21] MEDS: Albuterol-Ipratrop 3 mg / 0.5 (3 ml) UD IH SCH ×3 (02:22→14:39)
--- NOTE | 2017-11-21 06:39 | CON ---
DATE: 11/20/2017. REFERRING PHYSICIAN: REASON FOR CONSULTATION: Cough, shortness of breath, sleep apnea syndrome, admitted with GI bleed. HISTORY OF PRESENT ILLNESS: This is 72-year-old gentleman, well known to me from outpatient, with known complaint with multiple medical issues including uncontrolled hypertension, chronic obstructive lung disease, sleep apnea syndrome, obesity, diabetes, degenerative joint disease, active smoker, found to have a guaiac positive stool, had GI bleed, came into emergency room, found to be anemic, was admitted, seen by GI, has endoscopy done shows ulcers, also the cough with sputum production. No nausea. No abdominal pain. No dysuria. PAST MEDICAL HISTORY: As per history present illness. ALLERGIES: TO REQUIP. SOCIAL HISTORY: Active smoker. Denies any alcohol use. FAMILY HISTORY: No significant cardiopulmonary disease reported. MEDICATIONS: He is on Carafate 1 g twice a day, glipizide 10 mg daily, insulin coverage, gemfibrozil 600 mg twice a day, Protonix 40 mg twice a day, Pulmicort inhaled twice a day, Singulair 10 mg daily, and IV fluid normal saline 100 mL per hour. REVIEW OF SYSTEMS: No headache. No rhinitis. Had a cough sputum production . No chest pain. Presently, no nausea. No abdominal pain. No dysuria. Decreased leg swelling. PHYSICAL EXAMINATION GENERAL: Lying in the bed, no acute distress. VITAL SIGNS: Temperature is 98, heart rate is 89, respiratory rate is 18, blood pressure is 162/91, and pulse ox is 99% on nasal cannulation. HEENT: Moist mucous membranes. Crowded airway. NECK: Supple. No JVD. LUNGS: Scattered rhonchi and wheezing. HEART: S1 and S2. ABDOMEN: Soft, nontender, and nondistended. EXTREMITIES: Trace edema. NEUROLOGICALLY: Awake, alert, follow simple commands. LABORATORY DATA: Shows hemoglobin of 9.1, hematocrit 27.7, WBC 5.6, and platelet is 298. INR 1.13. Glucose 132, sodium 143, potassium 4.4, chloride 112, bicarbonate 19, BUN 46, and creatinine 1.7, glucose is 71, hemoglobin A1c is 6.7. Iron is 68, TIBC is 278, AST 23, ALT 29, alkaline phosphatase is 54, and albumin is 3.3, and cholesterol is 83. TSH is 1.03. B12 is 562, folate is 14.1. Urinalysis is unremarkable. Had an endoscopy done today, which shows normal esophagus, gastritis, hiatal hernia, multiple duodenal ulcer with clean ulcer base. IMPRESSION AND PLAN: Gastrointestinal bleed with multiple duodenal ulcers, chronic obstructive lung disease, uncontrolled hypertension, sleep apnea syndrome, degenerative joint disease, and anemia. Spoke to the patient in detail, asked him to stop smoking, consequences on smoking discussed, the patient express understanding, we will add DuoNeb every 6 hours. Continue Pulmicort. We will place him on BiPAP 12 hour rate with 30% oxygen while sleeping, Sequential compression device to lower extremity, proton inhibitor, gastrointestinal followup, follow up hemoglobin and hematocrit. Thank you and we will follow with you. Edilberto Caraballo MD
[2017-11-21] MEDS: Pantoprazole 40 mg EC Tab PO SCH (06:50)
[2017-11-21] MEDS: Sucralfate 1 gm/10 ml Oral Susp UD PO SCH (06:50)
--- NOTE | 2017-11-21 06:52 | CP.PCM.PN ---
<Manan Parker - Last Filed: 11/21/17 12:47> Subjective - Date & Time of Evaluation Date of Evaluation: 11/21/17 Time of Evaluation: 06:30 - Subjective Subjective: GI progress note: Pt seen and examined at bedside. No acute events overnight. Pt states that he is feeling well. Tolerating clear liquid diet. Denies any BM since EGD yesterday. Denies any abd pain, n/v/d. 12 Point ROS performed and negative other than stated above. Objective - Vital Signs/Intake and Output Vital Signs (last 24 hours): Temp Pulse Resp BP Pulse Ox 98.6 F 89 18 162/91 H 93 L 11/20/17 16:00 11/20/17 16:00 11/20/17 16:00 11/20/17 16:00 11/20/17 16:00 Intake and Output: 11/20/17 11/21/17 18:59 06:59 Intake Total 0 900 Output Total 500 1900 Balance -500 -1000 - Medications Medications: Current Medications Albuterol/Ipratropium (Duoneb 3 Mg/0.5 Mg (3 Ml) Ud) 3 ml IH [id number] [facility] Last Admin: 11/21/17 02:22 Dose: 3 ml Budesonide (Pulmicort Respules) 0.5 mg IH [id number] [facility] Last Admin: 11/20/17 21:10 Dose: 0.5 mg Gemfibrozil (Lopid) 600 mg PO BID [facility] Last Admin: 11/20/17 17:21 Dose: 600 mg Glipizide (Glucotrol Xl) 10 mg PO DAILY [facility] Last Admin: 11/20/17 13:03 Dose: Not Given Sodium Chloride (Sodium Chloride 0.9%) 1,000 mls @ 100 mls/hr IV .Q10H [facility] Last Admin: 11/20/17 17:17 Dose: 100 mls/hr Insulin Human Regular (Humulin R Low) 0 units SC ACHS [facility] PRN Reason: Protocol Last Admin: 11/20/17 21:42 Dose: Not Given Montelukast Sodium (Singulair) 10 mg PO DAILY [facility] Last Admin: 11/20/17 09:22 Dose: Not Given Pantoprazole Sodium (Protonix Ec Tab) 40 mg PO 0600,1600 [facility] Last Admin: 11/20/17 17:21 Dose: 40 mg Sucralfate (Carafate Oral Susp) 1 gm PO 0600,1600 [facility] Last Admin: 11/20/17 17:21 Dose: 1 gm - Labs Labs: 11/20/17 07:30 11/20/17 07:30 PT 12.9 SECONDS (9.4-12.5) H 11/19/17 15:35 INR 1.13 (0.93-1.08) H 11/19/17 15:35 APTT 29.4 Seconds (25.1-36.5) 11/19/17 15:35 - Constitutional Appears: No Acute Distress - Head Exam Head Exam: ATRAUMATIC, NORMOCEPHALIC - Eye Exam Eye Exam: EOMI, PERRL - ENT Exam ENT Exam: Mucous Membranes Moist - Neck Exam Neck Exam: Normal Inspection - Respiratory Exam Respiratory Exam: Clear to Ausculation Bilateral. absent: Wheezes - Cardiovascular Exam Cardiovascular Exam: REGULAR RHYTHM, RRR, +S1, +S2 - GI/Abdominal Exam GI & Abdominal Exam: Soft. absent: Tenderness - Extremities Exam Extremities Exam: absent: Calf Tenderness, Pedal Edema - Neurological Exam Neurological Exam: Alert, Awake, Oriented x3 - Psychiatric Exam Psychiatric exam: Normal Affect, Normal Mood - Skin Skin Exam: Dry, Intact, Warm Assessment and Plan - Assessment and Plan (Free Text) Assessment: 72 year old male with PMH of HTN, DM, COPD, REY, neuropathy presents to the Emergency department complaining of loose dark/bloody bowel movements and lightheadedness x 1 week - presents with UGI bleed. S/p EGD POD 1. UGI bleed s/p EGD post op day 1 Anemia DM COPD - Endoscopy revealed multiple duodenal ulcers, gastritis, and hiatal hernia - Continue Protonix 40mg PO BID - Continue Carafate 1gm BID - CLD - advance as tolerated - Monitor H/H today - Avoid NSAIDS use - Patient would also benefit from elective colonoscopy evaluation as an outpatient Case and plan was reviewed and discussed in detail with Dr Fox. <Nam Fox - Last Filed: 11/21/17 21:40> Objective - Vital Signs/Intake and Output Vital Signs (last 24 hours): Temp Pulse Resp BP Pulse Ox 97.8 F 64 18 114/59 L 96 11/21/17 07:00 11/21/17 07:00 11/21/17 07:00 11/21/17 07:00 11/21/17 07:00 - Labs Labs: 11/21/17 10:30 11/21/17 07:00 PT 12.9 SECONDS (9.4-12.5) H 11/19/17 15:35 INR 1.13 (0.93-1.08) H 11/19/17 15:35 APTT 29.4 Seconds (25.1-36.5) 11/19/17 15:35 Attending/Attestation - Attestation I have personally seen and examined this patient.: Yes I have fully participated in the care of the patient.: Yes I have reviewed all pertinent clinical information, including history, physical exam and plan: Yes Notes (Text): 11/21/17 21:38 72 year old male with h/o HTN, DM, COPD, REY admitted with UGIB 2/2 duodenal ulcers. 1. Duodenal ulcers with hemorrhage 2. Gastritis 3. Anemia Plan: - continue PPI / carafate as above - avoid nsaids / smoking - await path for H pylori - advance diet as tolerated - will sign off at this time
[2017-11-21 07:44] LABS: HEMOGLOBIN 8.7 g/dL (14.0-18.0); MEAN CELL VOLUME 94.7 fl (80.0-105.0); MEAN CORPUSCULAR HEMOGLOBIN 30.6 pg (25.0-35.0); MEAN CORPUSCULAR HGB CONC 32.3 g/dl (31.0-37.0); MEAN PLATELET VOLUME 10.7 fl (7.0-11.0); RBC 2.84 10^6/uL (3.5-6.1); RED CELL DISTRIBUTION WIDTH 13.8 % (11.5-14.5); WHITE BLOOD COUNT 9.1 10^3/ul (4.5-11.0)
[2017-11-21 08:10] LABS: ALB/GLOB RATIO 1.3 (1.1-1.8); ALBUMIN 3.2 g/dL (3.0-4.8); ALT/SGPT 23 U/L (7-56); AST/SGOT 22 U/L (17-59); BLOOD UREA NITROGEN 27 mg/dL (7-21); CALCIUM 8.7 mg/dL (8.4-10.5); GFR AFRICAN-AMERICAN > 60; GFR NON-AFRICAN AMERICAN 50
[2017-11-21] MEDS: Budesonide 0.5 mg/2 ml Inhal Susp UD IH SCH (08:28)
[2017-11-21 09:25] VITALS: BP 114/59; PULSE 64; TEMP 97.8; O2SAT 96
[2017-11-21] MEDS: Insulin Reg-LOW-Coverage SC SCH ×2 (09:55→12:19)
[2017-11-21] MEDS: GlipiZIDE 10 mg SR Tab PO SCH (09:57)
[2017-11-21 10:55] LABS: HEMOGLOBIN 9.5 g/dL (14.0-18.0)
== END 2017-11-21 16:05 | disposition home or self-care (01) | DRG 379 ==
LOC: ED 14:55 → ERH 17:59 → 5RSO 19:22
PROVIDERS: ADMIT Internal Medicine; ATTEND Internal Medicine
PROC: 0DB68ZX Excision of Stomach, Via Natural or Artificial Opening Endoscopic, Diagnostic (ICD-10-PCS; principal; 2017-11-20 10:00)
DX: K26.4 Chronic or unspecified duodenal ulcer with hemorrhage (principal); E11.40 Type 2 diabetes mellitus with diabetic neuropathy, unspecified; I95.9 Hypotension, unspecified; E11.65 Type 2 diabetes mellitus with hyperglycemia; J44.9 Chronic obstructive pulmonary disease, unspecified; D64.9 Anemia, unspecified; K29.70 Gastritis, unspecified, without bleeding; K44.9 Diaphragmatic hernia without obstruction or gangrene; I10 Essential (primary) hypertension; N28.9 Disorder of kidney and ureter, unspecified; F17.200 Nicotine dependence, unspecified, uncomplicated; E66.9 Obesity, unspecified; G47.33 Obstructive sleep apnea (adult) (pediatric); Z79.84 Long term (current) use of oral hypoglycemic drugs; Z91.19 Patient's noncompliance with other medical treatment and regimen

== ENCOUNTER 2018-06-14 12:18 | Emergency (ER) | payer MEDICARE ==
[2018-06-14 12:18] VITALS: BMI 37.5
--- NOTE | 2018-06-14 12:46 | ED PDOC ---
Arrival/HPI - General Chief Complaint: Abnormal Skin Integrity Time Seen by Provider: 06/14/18 12:28 Historian: Patient - History of Present Illness Narrative History of Present Illness (Text): 06/14/18 12:43 73 year old male, whose past medical history includes hypertension, diabetes, and COPD, who presents to the E complaining of a cut to the 3rd digit on the left hand. Patient states the car door closed on his finger yesterday, and the bleeding hasn't stopped. He denies any laceration to the hand. No blood thinners. Patient denies any chest pain, sob, abdominal pain, nausea, vomiting, diarrhea, or any other complaints. Tetanus UTD. 06/15/18 00:36 Time/Duration: 24 hours Symptom Onset: Sudden Symptom Course: Unchanged Activities at Onset: Light Context: Home Past Medical History - Provider Review Nursing Documentation Reviewed: Yes - Infectious Disease Hx of Infectious Diseases: None - Tetanus Immunization Tetanus Immunization: Unknown - Cardiac Hx Cardiac Disorders: Yes Hx Hypertension: Yes - Pulmonary Hx Respiratory Disorders: Yes Hx Chronic Obstructive Pulmonary Disease (COPD): Yes - Neurological Hx Neurological Disorder: No - HEENT Hx HEENT Disorder: No - Renal Hx Renal Disorder: No - Endocrine/Metabolic Hx Endocrine Disorders: Yes Hx Diabetes Mellitus Type 2: Yes - Hematological/Oncological Hx Blood Disorders: No - Integumentary Hx Dermatological Disorder: Yes - Musculoskeletal/Rheumatological Hx Musculoskeletal Disorders: Yes Hx Falls: Yes - Gastrointestinal Hx Gastrointestinal Disorders: No - Genitourinary/Gynecological Hx Genitourinary Disorders: No - Psychiatric Hx Psychophysiologic Disorder: No Hx Substance Use: No - Surgical History Hx Orthopedic Surgery: Yes (R KNEE R/T INFECTION) - Anesthesia Hx Anesthesia Reactions: No Hx Malignant Hyperthermia: No Family/Social History - Physician Review Nursing Documentation Reviewed: Yes Family/Social History: Unknown Family HX Smoking Status: Heavy Smoker > 10 Cigarettes Daily Hx Alcohol Use: No Hx Substance Use: No Allergies/Home Meds Allergies/Adverse Reactions: Allergies ropinirole HCl [From Requip] Allergy (Severe, Verified 06/14/18 12:21) ANGIOEDEMA swollen tongue Home Medications: Home Meds Medication Instructions Recorded Confirmed Enalapril Maleate [Vasotec] 20 mg PO DAILY 08/20/16 06/14/18 GlipiZIDE SR [Glucotrol XL] 10 mg PO DAILY 08/20/16 06/14/18 Spironolactone [Aldactone] 25 mg PO DAILY 08/20/16 06/14/18 amLODIPine [Norvasc] 10 mg PO DAILY 08/20/16 06/14/18 Fluticasone Propionate [Flovent 50 mcg INH DAILY 11/15/17 06/14/18 Diskus] Montelukast Sodium [Singulair] 10 mg PO DAILY 11/15/17 06/14/18 Review of Systems - Physician Review All systems were reviewed & negative as marked: Yes - Review of Systems Constitutional: Normal Eyes: Normal ENT: Normal Respiratory: Normal. absent: SOB, Cough Cardiovascular: Normal. absent: Chest Pain Gastrointestinal: Normal. absent: Abdominal Pain, Diarrhea, Nausea, Vomiting Genitourinary Male: Normal. absent: Dysuria, Frequency Musculoskeletal: Normal. absent: Back Pain, Neck Pain Skin: Laceration (3rd digit on left hand). absent: Rash Neurological: Normal. absent: Headache Endocrine: Normal Hemo/Lymphatic: Normal Psychiatric: Normal Physical Exam Vital Signs Reviewed: Yes Vital Signs Temp Pulse Resp BP Pulse Ox 06/14/18 13:38 98 F 63 18 118/60 98 06/14/18 12:23 98.0 F 62 17 116/58 L 96 Temperature: Afebrile Blood Pressure: Normal Pulse: Regular Respiratory Rate: Normal Appearance: Positive for: Well-Appearing, Non-Toxic, Comfortable Pain Distress: None Mental Status: Positive for: Alert and Oriented X 3 - Systems Exam Head: Present: Atraumatic, Normocephalic Pupils: Present: PERRL Extroacular Muscles: Present: EOMI Conjunctiva: Present: Normal Mouth: Present: Moist Mucous Membranes Neck: Present: Normal Range of Motion Respiratory/Chest: Present: Clear to Auscultation, Good Air Exchange. No: Respiratory Distress, Accessory Muscle Use Cardiovascular: Present: Regular Rate and Rhythm, Normal S1, S2. No: Murmurs Abdomen: No: Tenderness, Distention, Peritoneal Signs Back: Present: Normal Inspection Upper Extremity: Present: Normal Inspection. No: Cyanosis, Edema Lower Extremity: Present: Normal Inspection. No: Edema Neurological: Present: GCS=15, CN II-XII Intact, Speech Normal Skin: Present: Warm, Dry, Abrasion (3rd digit left hand, good n/v distal. No erythema or redness to wound. No knavel signs or crepitus. No fluctuance. Abrasion site roughtly 1x2cm). No: Rashes Psychiatric: Present: Alert, Oriented x 3, Normal Insight, Normal Concentration Medical Decision Making ED Course and Treatment: 06/14/18 12:49 Impression: 73 year old male presents to the ED c/o abrasion to the 3rd digit of the left hand. No indication of infx- no erythema, crepitus or fluctuance. Will dress wound and send home with ppx abx. Plan: -- reassess and disposition Progress Notes: 06/14/18 13:15 Bacitracin was put onto abrasion, and pts wound was bandaged. given abx and followup. 06/15/18 00:30 - Scribe Statement The provider has reviewed the documentation as recorded by the Scribe Savanna Baum All medical record entries made by the Scribe were at my direction and personally dictated by me. I have reviewed the chart and agree that the record accurately reflects my personal performance of the history, physical exam, medical decision making, and the department course for this patient. I have also personally directed, reviewed, and agree with the discharge instructions and disposition. Disposition/Present on Arrival - Present on Arrival Any Indicators Present on Arrival: No History of DVT/PE: No History of Uncontrolled Diabetes: Yes Urinary Catheter: No History of Decub. Ulcer: No History Surgical Site Infection Following: None - Disposition Have Diagnosis and Disposition been Completed?: Yes Diagnosis: Skin avulsion, Abrasion, Wound of skin Disposition: HOME/ ROUTINE Disposition Time: 13:00 Condition: GOOD Discharge Instructions (ExitCare): Skin Abrasions Additional Instructions: DENNY CARCAMO, thank you for letting us take care of you today. Your provider was Boone Salgado and you were treated for CUT TO FINGER. The emergency medical care you received today was directed at your acute symptoms. If you were prescribed any medication, please fill it and take as directed. It may take several days for your symptoms to resolve. Return to the Emergency Department if your symptoms worsen, do not improve, or if you have any other problems. Please contact your doctor or call one of the physicians/clinics you have been referred to that are listed on the Patient Visit Information form that is included in your discharge packet. Bring any paperwork you were given at discharge with you along with any medications you are taking to your follow up visit. Our treatment cannot replace ongoing medical care by a primary care provider outside of the emergency department. Thank you for allowing the [facility] team to be part of your care today. If you had an X-Ray or CT scan: A Radiologist will review the ED reading if any change in treatment is needed we will contact you. If you had a blood, urine, or wound culture: It will take several days for the results, if any change in treatment is needed we will contact you. If you had an STI test: It will take 48 hours for the results. Please call after 1 week if you have not heard back. Prescriptions: Cephalexin [Keflex] 500 mg PO BID 5 Days #10 capsule Referrals: Galilea Bowman MD [Medical Doctor] - Follow up with primary Forms: [employer] (Persian)
[2018-06-14 13:39] VITALS: BP 118/60; PULSE 63; RESP 18; TEMP 98; O2SAT 98
== END 2018-06-14 13:38 | disposition home or self-care (01) ==
LOC: ED 12:18
DX: S61.203A Unspecified open wound of left middle finger without damage to nail, initial encounter (principal); S60.413A Abrasion of left middle finger, initial encounter; W22.8XXA Striking against or struck by other objects, initial encounter; E11.9 Type 2 diabetes mellitus without complications; I10 Essential (primary) hypertension; J44.9 Chronic obstructive pulmonary disease, unspecified; F17.210 Nicotine dependence, cigarettes, uncomplicated